=== PATIENT | female | born 1995 | race Caucasian/White ===

== ENCOUNTER 2022-05-15 09:06 | Outpatient (RCR) | payer BC, SELFPAY ==
[2022-05-16] MEDS: RHO(D) IMMUNE GLOBULIN 300 MCG/2 ML SYRINGE IM (19:40)
== END 2022-08-13 23:59 | disposition home or self-care (01) ==
LOC: ANHLAB 09:06
PROVIDERS: Visit Provider Obstetrics & Gynecology
DX: Z29.13 Encounter for prophylactic Rho(D) immune globulin (principal); O36.0130 Maternal care for anti-D [Rh] antibodies, third trimester, not applicable or unspecified; Z3A.00 Weeks of gestation of pregnancy not specified
CPT/HCPCS: 36415; 85461; 90384; 96372; J2790

== ENCOUNTER 2022-07-14 18:21 | Emergency (ER) | payer BC, SELFPAY ==
[2022-07-14 18:32] VITALS: BP 121/73; PULSE 126; RESP 18; TEMP 36.7; O2SAT 99
--- NOTE | 2022-07-14 19:05 | ED.GENADULT ---
HPI - General Adult General Chief complaint: Upper Respiratory Infection Stated complaint: headache,cough History of Present Illness HPI narrative: 27 y/o female. PMHx None reported. Presents to [facility] today with acute complaints of BHAKTA, increased nasal congestion, bilateral ear fullness, and sore throat for the past 3-4 days respectively. Client reports to have had a young child at home, ill with similar symptoms in the recent interim. -No fevers, chills. -Intermittent cough, no dyspnea, wheezing. -Denies dysphagia. She is incidentally 38 weeks gestation . G2-P1-A0. She voices no related concerns. -Intermittent BHAKTA. However blood pressure has been well controlled, no dizziness, syncopal episodes, edema. -Denies chest pain, palpitations. -She is scheduled for induction on 07/30/2022. Client has had mild reliefs with home OTC remedies. She is without additional acute c/o upon PE. Related Data Home Medications Medication Instructions Recorded Confirmed levothyroxine 75 mcg tablet 75 mcg PO DAILY 06/30/22 07/14/22 prenat.vits,eugene,[id number] 1 tablet PO DAILY 06/30/22 07/14/22 Allergies Allergy/AdvReac Type Severity Reaction Status Date / Time No Known Allergies Allergy Verified 07/14/22 18:38 Review of Systems Review of Systems: CONSTITUTIONAL: Denies fever, chills, sweats. BHAKTA, denies visual changes, dizziness, LOC. EYES: Denies visual changes, redness, discharge. ENT: + rhinorrhea, congestion, ear fullness. No sore throat, otalgia. CARDIOVASCULAR: Denies chest pain, palpitations, edema. RESPIRATORY: Denies dyspnea, wheezing. Intermittent cough GASTROINTESTINAL: Denies abdominal pain, nausea, vomiting, diarrhea. GENITOURINARY: Denies dysuria, hematuria, abnormal discharge SKIN: Denies rash or itching. MUSCULOSKELETAL: Denies acute back pain, joint pain, or myalgia. NEUROLOGIC: Denies numbness, or focal weakness. PSYCHIATRIC: Denies anxiety or depression. [facility] Social History Social History Substance use: never Spiritual care concerns: No Exam Narrative: GENERAL: This is a well-nourished, well-developed adult, in no apparent distress. HEAD: normocephalic. EYES: Sclera clear/white. EARS: External ears normal, auditory canals clear and without drainage. TMs bulging bilateral, w/o erythema, discharge. NOSE: External nose normal. Positive Rhinorrhea, no obstruction, nares patent. THROAT: Mucous membranes moist, posterior pharynx erythematous. No exudates. NECK: Neck supple, non-tender without lymphadenopathy, masses or thyromegaly. No meningeal signs. CARDIOVASCULAR: Mild tachycardia. Regular rhythm without murmurs, gallops, or rubs. No edema. RESPIRATORY: Clear to auscultation. Breath sounds equal bilaterally. No wheezes, rales, or rhonchi. GASTROINTESTINAL: Abdomen non-tender. Bowel sounds are active. SKIN: warm, intact with no suspicious lesions or rash, good texture and turgor. NEURO: No focal deficits. A&OX4. Course Course Level of Care: Express Care Visit Vital Signs Vital signs: Vital Signs Temperature 36.7 C 07/14/22 18:32 Pulse Rate 126 H 07/14/22 18:32 Respiratory Rate 18 07/14/22 18:32 Blood Pressure 121/73 07/14/22 18:32 Pulse Oximetry 99 07/14/22 18:32 Oxygen Delivery Room Air 07/14/22 18:32 Temperature 36.7 C 07/14/22 18:32 Pulse Rate 126 H 07/14/22 18:32 Respiratory Rate 18 07/14/22 18:32 Blood Pressure 121/73 07/14/22 18:32 Pulse Oximetry 99 07/14/22 18:32 Oxygen Delivery Room Air 07/14/22 18:32 Medical Decision Making [facility] Narrative Medical decision making narrative: -Rapid Strep negative. -Influenza negative. -Child at home ill with similar URI s/s, suspect other viral illness or common cold based on history, symptomatology, & PE findings. -BHAKTA, without focal neurological deficits. No signs of Pre-eclampsia or Hypertens
[2022-07-14 19:08] VITALS: PULSE 117; O2SAT 97
== END 2022-07-14 19:08 | disposition home or self-care (01) ==
PROVIDERS: Emergency Provider Nurse Practitioner Adult Health; PCP Obstetrics & Gynecology
DX: B34.9 Viral infection, unspecified (principal)
CPT/HCPCS: 87081; 87804; 87880; 99203; G0463

== ENCOUNTER 2022-07-16 18:34 | Outpatient (CLI) | payer BC, SELFPAY ==
--- NOTE | 2022-07-16 19:12 | PC.NURSE ---
1854- pt came in with c/o DFM since 4pm today. she has been under the weather for a few days and not feeling well and went to urgent care this weekend. tested negative from flu, covid, and RSV. pt also states that she hasn't been eating since she hasn't been feeling well.
--- NOTE | 2022-07-16 19:15 | PC.NURSE ---
1901- called Jace Ramires CNM- informed of pt admission for DFM- FHT reviewed. pt is feeling baby now. pt is wanting to d/c home. Per Jace Ramires CNM- have pt call office in AM to schedule appt for RAUL in office. pt agrees and order received to d/c pt home with instructions on when to return to L&D.
== END 2022-07-16 18:35 | disposition home or self-care (01) ==
PROVIDERS: PCP Obstetrics & Gynecology; Visit Provider Obstetrics & Gynecology
DX: O36.8190 Decreased fetal movements, unspecified trimester, not applicable or unspecified (principal); Z3A.00 Weeks of gestation of pregnancy not specified
CPT/HCPCS: 59025

== ENCOUNTER 2022-07-30 00:04 | Inpatient (IN) | payer BC, SELFPAY ==
[2022-07-30] VITALS (67 sets, daily range): BP systolic 75–147; BP diastolic 49–93; PULSE 69–157; RESP 14–16; TEMP 36.3–37; O2SAT 93–100; BMI 32.3
--- NOTE | 2022-07-30 01:06 | LDADM ---
This patient, Minal Orlando, was admitted to Labor/Delivery/Recovery 107 on 07/30/22 at 00:04. Plans for labor, pain management and were discussed with patient. Patient/family oriented to hospital policies and general routines including ID bracelet, bed and alarms, visiting hours, pain management, procedures, bathroom and other care routines, personal items, smoking policy, room service/diet and guest tray routines, infant security routines, and visiting hours. Patient/Family are encouraged to report perceived risks to care and to ask questions if they do not understand what they are told or what they should do. See OBIX for further documentation.
[2022-07-30 01:14] LABS: Basophils Absolute Auto 0.1 K/mm3 (0.0-0.1); Basophils Percent Auto 0.4 % (0.2-1.2); Eosinophils Absolute Auto 0.1 K/mm3 (0-0.3); Eosinophils Percent Auto 0.6 % (0-4.4); Hematocrit 34.2 % (37.0-47.0); Hemoglobin 10.9 g/dL (12.0-15.0); Immature Granulocyte Absolute 0.06 K/mm3 (0.00-0.031); Immature Granulocyte Percent A 0.5 % (0-0.5); Lymphocytes Absolute Auto 2.21 K/mm3 (0.9-3.2); Lymphocytes Percent Auto 17.9 % (18.3-44.2); Mean Corpuscular HGB Conc 31.9 g/dl (32-36); Mean Corpuscular Hemoglobin 27.9 pg (26-34); Mean Corpuscular Volume 87.5 fl (80-100); Mean Platelet Volume 9.2 fl (7.4-10.4); Monocytes Absolute Auto 1.1 K/mm3 (0.1-0.6); Monocytes Percent Auto 8.7 % (2.6-8.5); Neutrophils Absolute Auto 8.9 K/mm3 (1.3-6.7); Neutrophils Percent Auto 71.9 % (45.5-73.1); Platelet Count Result 403 k/mm3 (150-375); Red Blood Count 3.91 M/mm3 (4.2-5.4); Red Cell Distribution Width 13.8 % (11.5-14.5); White Blood Count 12.4 K/mm3 (4.5-10.0)
[2022-07-30] MEDS: fentaNYL CITRATE INJ (*CRX) 100 MCG/2 ML VIAL 50 MCG IV PUSH ×2 (01:42→02:00)
[2022-07-30] MEDS: LACTATED RINGERS 1,000 ML 125 ML IV CONT ×2 (02:18→03:47)
--- NOTE | 2022-07-30 02:38 | P.PNAN_ITS ---
Anes - Eval Pre Procedure Procedure: Labor epidural Date/Time: 07/30/22 02:38 Surgeon: tom Preop Diagnosis: pain during labor Pre Op Diagnosis: srom Patient Data Age: 27 Gender: F Height: 1.52 m Weight: 75 kg Last Vital Signs Pulse 120 H 07/30/22 02:30 BP 128/93 H 07/30/22 02:30 Pulse Ox 100 07/30/22 02:36 O2 Del Method Room Air 07/30/22 01:04 Allergies Allergy/AdvReac Type Severity Reaction Status Date / Time No Known Allergies Allergy Verified 07/14/22 18:38 Home Medications Medication Instructions Recorded Confirmed Type levothyroxine 75 mcg tablet 75 mcg PO DAILY 06/30/22 07/14/22 History prenat.vits,eugene,[id number] 1 tablet PO DAILY 06/30/22 07/14/22 History Laboratory Tests 07/30/22 07/30/22 00:19 00:19 WBC 12.4 K/mm3 H K/mm3 (4.5-10.0) RBC 3.91 M/mm3 L M/mm3 (4.2-5.4) Hgb 10.9 g/dL L g/dL (12.0-15.0) Hct 34.2 % L % (37.0-47.0) MCV 87.5 fl fl (80-100) MCH 27.9 pg pg (26-34) MCHC 31.9 g/dl L g/dl (32-36) RDW 13.8 % % (11.5-14.5) Plt Count 403 k/mm3 H k/mm3 (150-375) MPV 9.2 fl fl (7.4-10.4) Immature Gran % (Auto) 0.5 % % (0-0.5) Neut % (Auto) 71.9 % % (45.5-73.1) Lymph % (Auto) 17.9 % L % (18.3-44.2) [place] % (Auto) 8.7 % H % (2.6-8.5) Eos % (Auto) 0.6 % % (0-4.4) Baso % (Auto) 0.4 % % (0.2-1.2) Lymph # (Auto) 2.21 K/mm3 K/mm3 (0.9-3.2) [place] # (Auto) 1.1 K/mm3 H K/mm3 (0.1-0.6) Eos # (Auto) 0.1 K/mm3 K/mm3 (0-0.3) Baso # (Auto) 0.1 K/mm3 K/mm3 (0.0-0.1) Abs Immat Gran (auto) 0.06 K/mm3 H K/mm3 (0.00-0.031) Absolute Neuts (auto) 8.9 K/mm3 H K/mm3 (1.3-6.7) Absolute Nucleated RBC 0.0 K/mm3 K/mm3 (0.0-0.012) Nucleated RBC % 0.0 % % (0.0-0.2) RPR Pending Patient hx anesthesia problems: none Family hx anesthesia problems: none Results Review: All pre-operative results and documents have been reviewed as part of the pre- operative evaluation. [facility] Past Medical History Medical History (Updated 07/30/22 @ 02:40 by Viktoriya Hernandez CRNA) Hypothyroid IUP (intrauterine ), incidental Social History Social History Smoking status: Never smoker Substance use: never Lack of Transportation: No Lack of Food: Never True Current Housing: I Have Housing Concerned About Future Housing: No Difficulty Paying Gas/Electric Bills: No Difficulty Paying for Meds: No Currently Unemployed: No Education: Trade/Vocational Certificate Difficulty w/ Childcare or Family Care: No Spiritual care concerns: No Exam Day of Procedure 07/30/22 02:38
[2022-07-30] MEDS: OXYTOCIN 30 UNITS/NS 500 ML 30 UNITS/500 ML BAG 999 UNITS IV CONT (03:48)
--- NOTE | 2022-07-30 04:48 | PM.OBPRVD ---
OB - Delivery Note Procedure Delivery date: 07/30/22 Procedure: Delivery monitor: External FHT and External Uterine Route of delivery: Laceration Description: None Quantitative Blood Loss (ml): 75 Anesthesia type: Epidural Disposition: Floor Narrative: With adequate expulsive efforts by the mother, the baby's head was delivered OA with a hand along side it. The baby's anterior shoulder was delivered under the pubic symphysis without difficulty. The posterior shoulder and the rest of the baby delivered without difficulty. The infant was placed on the mothers chest and suctioned and stimulated. The cord was clamped and cut after 30 seconds. Mother and baby both stable. [place] Baby Date of : 07/30/22 Time of : 04:36 Weeks of gestation at delivery: 40 gender: Female Weight (pounds): 8 Weight (ounces): 10 presentation: vertex Placenta delivery description: Spontaneous Cord Vessel Description: 3 Vessels and Delayed Cord Clamping score one minute: 8 score five minutes: 9
--- NOTE | 2022-07-30 04:51 | WPDHPUPDATE1 ---
History and Physical Update Update Date/Time: 07/30/22 04:51 History and Physical has been reviewed, including an updated exam of the patient. There are NO changes in the patient's condition. Risks, benefits, and alternatives have been discussed and questions answered. Patient agrees to proceed with procedure. Admitted in labor, active. GBS neg. hypothyroidism. Rh neg.
--- NOTE | 2022-07-30 08:07 | PC.NURSE ---
Patient transferred to post room #290 via wheelchair. Support person present. Oriented to unit, room, information board, rooming in, admission packet and security measures. Patient verbalizes understanding.
[2022-07-30] MEDS: ACETAMINOPHEN/BUTALBITAL/CAFFEINE 325-50-40 MG TABLET (FIORICET) 1 TAB PO (09:46)
[2022-07-30] MEDS: LANOLIN (LANSINOH) 7.5 GM CREAM 1 APPLIC TOPICAL (09:47)
--- NOTE | 2022-07-30 10:48 | PC.NURSE ---
1009 Introductions were made, then consulted with patient to assess needs related to . Mother led the conversation with the experience so far going well with no pain. Mother breastfed her last child for 10 months and this one is going well just like the last one did . Resources provided for inpatient and outpatient services using a resource guide. Mother voiced understanding of information and will call if there is a request for assistance. Reported to primary RN.
[2022-07-30 12:44] LABS: Rapid Plasma Reagin Non-Reactive (NonReactive)
[2022-07-31 04:59] LABS: Hematocrit 34.1 % (37.0-47.0); Hemoglobin 10.9 g/dL (12.0-15.0)
[2022-07-31 05:00] VITALS: BP 103/72; PULSE 72; RESP 16; TEMP 36.2; O2SAT 99
--- NOTE | 2022-07-31 07:24 | PM.OBPNVD ---
OB - PN: Subj Subjective Date/time seen: 07/31/22 07:24 Patient comments: no complaints and pain well controlled baby status: doing well and nursing well Matthews feeding status: exclusively breast feeding Narrative: would like DC home today OB - PN: Obj Data Labs CBC & Chem 7: 07/31/22 04:12 Labs: Laboratory Results - last 24 hr 07/30/22 07/30/22 07/31/22 00:19 00:19 04:12 Hgb Hct RPR Non-reactive Blood Type B Negative B Negative Antibody Screen Positive Positive Antibody Identification Passive Due to RH Imm Glob Antigen Identification Cancelled HANNAH, IgG Interpret Not Performed Not Performed HANNAH, Poly Interpret Negative Negative HANNAH, Complement Interp Not Performed Not Performed 07/31/22 04:12 Hgb 10.9 L Hct 34.1 L RPR Blood Type Antibody Screen Antibody Identification Antigen Identification HANNAH, IgG Interpret HANNAH, Poly Interpret HANNAH, Complement Interp OB - PN A/P Plan day: 1 Plan: routine care and discharge home Time Spent With Patient Time: Total time spent is greater than 50% in coordination of care (as documented) at patient's floor/unit and/or counseling patient: Time with patient: less than 15 minutes Exam Narrative: NAD abdomen soft, nontender, fundus firm below the umbilicus Extremities nontender, 1+ edema
--- NOTE | 2022-07-31 07:27 | PM.OBDSVD ---
DS: Admitting Diagnosis Discharge Date 07/31/22 Admitting Diagnosis term labor DS: Discharge Diagnosis Discharge Diagnosis (1) , delivered: Code(s): O80 - Encounter for full-term uncomplicated delivery Status: Acute OB - DS: Summary Hospital Course Hospital Course: Minal was admitted for labor at 40w. She proceeded to have an uncomplicated vaginal delivery and course and was discharged home on PPD1. OB Procedures : Ultrasound OB Procedures Intrapartum: Spontaneous Vag Delivery OB Procedures: : None Peripartum Data Delivery Method: Natural Vaginal complications: none Status at Discharge Functional status at discharge: independent ambulation Time Spent with Patient Time attestation: Total time spent providing and/or coordinating discharge services: Exam Narrative: NAD abdomen soft, appropriately tender Ext non tender, 1+ edema DS: Data Data Completed and Pending Labs on day of discharge: Labs from last 24 hours 07/31/22 07/31/22 07/30/22 04:12 04:12 00:19 Hgb 10.9 L Hct 34.1 L RPR Blood Type B Negative B Negative Antibody Screen Positive Positive Antibody Identification Pending Passive Due to RH Imm Glob Antigen Identification Pending Cancelled HANNAH, IgG Interpret Not Performed Not Performed HANNAH, Poly Interpret Negative Negative HANNAH, Complement Interp Not Performed Not Performed Screen Pending Baby's Blood Type Pending Baby's HANNAH Pending Doses of RhIg Required Pending 07/30/22 00:19 Hgb Hct RPR Non-reactive Blood Type Antibody Screen Antibody Identification Antigen Identification HANNAH, IgG Interpret HANNAH, Poly Interpret HANNAH, Complement Interp Screen Baby's Blood Type Baby's HANNAH Doses of RhIg Required Discharge Plan Discharge Attending physician on discharge: Triny Choi Discharging Clinician: Triny Choi Anticipated Discharge Date/Time: 07/31/22 07:26 Patient Disposition: Home, Self-Care Activity: pelvic rest Diet: regular Patient Instructions: Antibiotic Form Stand Alone Forms: General Discharge Information Follow-up/Referrals: Triny Choi MD [Primary Care Provider] - 4 Weeks Discharge Medications: Continued levothyroxine 75 mcg Tablet 75 mcg PO DAILY #2 Tablet 1 tablet PO DAILY Date of admission: 07/30/22 00:04 Primary Care Provider: Triny Choi Admitting Provider: Triny Choi Attending physician on admission: Triny Choi Condition: Stable
[2022-07-31 08:30] VITALS: BP 86/55; PULSE 74; RESP 16; TEMP 37; O2SAT 98
--- NOTE | 2022-07-31 08:53 | WPDANLDPN2 ---
Anes-Prog Note L&D Date/Time: 07/31/22 08:53 Neuro status: Neuro function grossly intact. Vital Signs: Last Vital Signs Temp 36.2 C L 07/31/22 05:00 Pulse 72 07/31/22 05:00 Resp 16 07/31/22 05:00 BP 103/72 07/31/22 05:00 Pulse Ox 99 07/31/22 05:00 O2 Del Method Room Air 07/30/22 19:55 Pain score (VAS): 0 I/O: Intake & Output 07/30/22 07/31/22 07/31/22 23:59 07:59 15:59 Intake Total 500 Balance 500 Patient feedback: Patient satisfied with anesthetic care.
[2022-07-31] MEDS: RHO(D) IMMUNE GLOBULIN 300 MCG/2 ML SYRINGE IM (09:23)
[2022-07-31 10:25] VITALS: BP 114/84
[2022-08-01 10:18] VITALS: BP 107/74; PULSE 111; RESP 20; TEMP 36.8; O2SAT 98
== END 2022-07-31 11:55 | disposition home or self-care (01) | DRG 807 ==
LOC: ANHLDR 00:08 → ANHOB2 08:10
PROVIDERS: Admitting Provider Obstetrics & Gynecology; PCP Obstetrics & Gynecology; Visit Provider Obstetrics & Gynecology
DX: O99.284 Endocrine, nutritional and metabolic diseases complicating childbirth (principal); Z37.0 Single live birth; Z3A.40 40 weeks gestation of pregnancy; E03.9 Hypothyroidism, unspecified
CPT/HCPCS: 36415; 84112; 85014; 85018; 85025; 85461; 86592; 86850; 86880; 86900; 86901; 86902; 90384; A9270; J2590; J2790; J2795; J3010; J7120

== ENCOUNTER 2022-08-01 10:11 | Outpatient (CLI) | payer BC, SELFPAY ==
--- NOTE | 2022-08-01 10:20 | PC.NURSE ---
Dr. Hogan at bedside to assess pt. May D/C home. No further treatment needed.
--- NOTE | 2022-08-01 10:31 | WPDANLDPN2 ---
Anes-Prog Note L&D Date/Time: 08/01/22 10:31 Neuraxial method: epidural Neuro status: Neuro function grossly intact. Cardiovascular status: normal Respiratory status: normal Airway patency: baseline Mental status: baseline Post-Op hydration status: normal Pain score (VAS): mild Patient feedback: Patient comes for F/U post-procedure and delivery day 2 with BHAKTA. She describes onset last night. Moderate severity. Posterior head and neck pain. no visual or neuro symptoms.less pain today but worsening one hour after awakening. Has only taken one of her Fioricet last night that she takes for migraines. Patient is sitting up at 45 degrees in bed breast feeding in no apparent distress. Epidural note describes no difficulty in placement and no CSF. This and the patient's small size lead me to believe epidural was placed without dural puncture. Her relative mild to moderate pain and her willingness to try conservative measures means we will not perform a blood patch at this time. I described at length the procedure and conservative measure to take today including pain meds, positioning, caffeine and hydration. I asked her to call with any worsening or neuro symptoms and we would reevaluate if necessary.
[2022-08-01 10:36] VITALS: BP 114/72; TEMP 36.4
== END 2022-08-01 10:39 | disposition home or self-care (01) ==
LOC: ANHOBOP 10:33
PROVIDERS: Visit Provider Obstetrics & Gynecology
DX: O89.4 Spinal and epidural anesthesia-induced headache during the puerperium (principal)
CPT/HCPCS: 99199

== ENCOUNTER 2023-05-15 15:10 | Outpatient (CLI) | payer BC, SELFPAY ==
--- NOTE | 2023-05-20 16:31 | WPDHOLTEREM ---
Holter/Event Monitor Holter/Event Monitor Date of procedure: 05/15/23 Holter/Event Procedure: 48 Hr Holter Monitor Indications: Palpitations Conclusion: 1. 48 hour holter monitor on 05/15/23. 2. Underlying rhythm is sinus rhythm. HR range 51-152 bpm; average HR 88 bpm. HR at 152 bpm was at 10:16. 3. There is 1 premature supraventricular complexes and 3 supraventricular couplets. No supraventricular tachycardia. 4. No premature ventricular complexes. No ventricular tachycardia. 5. No sinoatrial or atrioventricular blocks. No significant pauses greater than 2 seconds. 6. No symptoms available for correlation.
== END 2023-05-15 15:11 | disposition home or self-care (01) ==
PROVIDERS: PCP Internal Medicine; Visit Provider Clinical Nurse Specialist
DX: R00.2 Palpitations (principal)
CPT/HCPCS: 93225; 93226

== ENCOUNTER 2024-06-06 04:05 | Emergency (ER) | payer BC, SELFPAY ==
--- NOTE | ~2024-06-06 | XR_ITS ---
EXAMINATION: XR ankle LT min 3V DATE: 06/06/2024 04:28 INDICATION: Left ankle pain post fall TECHNIQUE: Anteroposterior, mortise and lateral views of the left ankle were obtained. COMPARISON: None. FINDINGS: Alignment is normal. No fracture. Joint spaces are well maintained. Small sclerotic bone islands at the talar dome and at the calcaneal body. No ankle joint effusion. Soft tissue swelling about the lat eral malleolus. IMPRESSION: 1. No osseous abnormality. Reviewed, dictated and finalized at location A. IMPRESSION: 1. No osseous abnormality.
[2024-06-06 04:15] VITALS: BP 111/67; PULSE 96; RESP 14; TEMP 36.6; O2SAT 98
--- NOTE | 2024-06-06 04:18 | ED.GENADULT ---
HPI - General Adult General Chief complaint: Extremity Injury, Lower Stated complaint: L ankle injury Time Seen by Provider: 06/06/24 04:14 History of Present Illness HPI narrative: Patient is a 29-year-old female who presents emergency department with chief complaint of left ankle pain. Patient reports that she was taken shoulder up from daycare rolled her ankle and reports she has pain on the lateral malleolus of her left ankle. The patient reports hurts whenever she tries to walk on it denies numbness or tingling denies any laceration denies head injury reports she had an abrasion to her right knee Related Data Home Medications Medication Instructions Recorded Confirmed multivitamin (Multiple Vitamins 1 tablet PO DAILY 01/15/23 05/19/24 tablet) valacyclovir 1 gram tablet 2,000 mg PO BID PRN 01/15/23 05/19/24 Allergies Allergy/AdvReac Type Severity Reaction Status Date / Time No Known Allergies Allergy Verified 06/06/24 04:05 Review of Systems Review of Systems: A 10 system review of systems was completed on the patient and is negative except for what is stated in the HPI. Nursing and ancillary documentation was reviewed. [facility] Past Medical History Medical History Hypothyroid Iron deficiency anemia IUP (intrauterine ), incidental Family History Family History Grandparent Diabetes mellitus Ovarian cancer Social History Social History Smoking status: Never smoker Alcohol intake: never Substance use: never Do You Feel Safe in your Home?: Yes Lack of Transportation: No Lack of Food: Never True Current Housing: I Have Housing Concerned About Future Housing: No Difficulty Paying Gas/Electric Bills: No Difficulty Paying for Meds: No Currently Unemployed: No Education: Trade/Vocational Certificate Difficulty w/ Childcare or Family Care: No Spiritual care concerns: No Exam Narrative: GENERAL: Well-appearing, well-nourished, and in no acute distress. HEAD: Normocephalic, atraumatic. EYES: PERRLA and EOMI. ENT: Nares clear, no rhinorrhea or epistaxis. Mucous membranes moist. NECK: Supple. CHEST: Clear to auscultation. No respiratory distress. HEART: Regular rate and rhythm. No murmur heard. Normal peripheral pulses. ABDOMEN: Soft, nontender, nondistended, normal active bowel sounds. EXTREMITIES: Normal range of motion tenderness and swelling of the lateral malleolus of the left ankle small abrasion present to the right knee area. No edema. SKIN: Warm, dry, no rash. NEURO: No focal deficits. Alert and oriented x3. GCS 15 PSYCH: Normal mood and affect. Course Vital Signs Vital signs: Vital Signs Temperature 36.6 C 06/06/24 04:15 Pulse Rate 96 06/06/24 04:15 Respiratory Rate 14 06/06/24 04:15 Blood Pressure 111/67 06/06/24 04:15 Pulse Oximetry 98 06/06/24 04:15 Temperature 36.6 C 06/06/24 04:15 Pulse Rate 96 06/06/24 04:15 Respiratory Rate 14 06/06/24 04:15 Blood Pressure 111/67 06/06/24 04:15 Pulse Oximetry 98 06/06/24 04:15 Medical Decision Making MDM Narrative Medical decision making narrative: Differential diagnosis includes fracture, sprain/strain Plain film x-ray showed no evidence of fracture Patient came in with a walking boot the walking boot will be placed back on the patient in the patient will be put on crutches with weight-bearing as tolerated Vital Signs Vital Signs: Vital Signs Temperature 36.6 C 06/06/24 04:15 Pulse Rate 96 06/06/24 04:15 Respiratory Rate 14 06/06/24 04:15 Blood Pressure 111/67 06/06/24 04:15 Pulse Oximetry 98 06/06/24 04:15 Temperature 36.6 C 06/06/24 04:15 Pulse Rate 96 06/06/24 04:15 Respiratory Rate 14 06/06/24 04:15 Blood Pressure 111/67
[2024-06-06] MEDS: HYDROcodone/acetaminophen (*CRX) 5-325 MG TABLET 1 TAB PO (04:42)
[2024-06-06 04:49] VITALS: BP 111/96; PULSE 87; RESP 14; O2SAT 100
== END 2024-06-06 04:50 | disposition home or self-care (01) ==
LOC: ANHED 04:37
PROVIDERS: Emergency Provider Emergency Medicine; PCP Internal Medicine
DX: S93.402A Sprain of unspecified ligament of left ankle, initial encounter (principal); X50.0XXA Overexertion from strenuous movement or load, initial encounter; E03.9 Hypothyroidism, unspecified
CPT/HCPCS: 73610; 99283; A9270

== ENCOUNTER 2024-07-06 15:55 | Outpatient (RCR) | payer BC, SELFPAY ==
[2024-07-08] MEDS: RHO(D) IMMUNE GLOBULIN 300 MCG/2 ML SYRINGE IM (20:53)
== END 2024-10-04 23:59 | disposition home or self-care (01) ==
LOC: ANHLAB 15:55
PROVIDERS: PCP Internal Medicine; Visit Provider Obstetrics & Gynecology
DX: O36.0190 Maternal care for anti-D [Rh] antibodies, unspecified trimester, not applicable or unspecified (principal); Z3A.00 Weeks of gestation of pregnancy not specified
CPT/HCPCS: 36415; 85461; 86850; 86900; 86901; 90384; 96372; J2790

== ENCOUNTER 2024-09-04 11:15 | Observation (INO) | payer BC, SELFPAY ==
[2024-09-04] VITALS (39 sets, daily range): BP systolic 105–111; BP diastolic 64–67; PULSE 90–134; RESP 16; TEMP 36.4; O2SAT 97–100; BMI 30.3
--- NOTE | 2024-09-04 11:48 | OBADM ---
This patient, Minal Orlando, admitted to the OB room 111 for observation. Patient/family oriented to hospital policies and general routines including ID bracelet, bed and alarms, visiting hours, pain management, procedures, bathroom and other care routines, personal items, smoking policy, room service/diet, and visiting hours. Patient/Family are encouraged to report perceived risks to care and to ask questions if they do not understand what they are told or what they should do.
--- NOTE | 2024-09-04 13:01 | ECG_ITS ---
Test Date: 2024-09-04 13:18:24 Measurements Intervals [place] Rate: 120 P: 41 DC: 120 QRS: 15 QRSD: 81 T: 6 QT: 339 QTc: 479 Interpretive Statements SINUS TACHYCARDIA NONSPECIFIC T-WAVE ABNORMALITY ABNORMAL RHYTHM ECG No previous ECG available for comparison Electronically Signed On 09-07-2024 15:05:13 [employer] by Jason Amaro M.D.
--- NOTE | 2024-09-11 07:16 | PM.OBTRLD ---
OB - Triage/Final Diagnosis Visit Information Date of evaluation: 09/08/24 Reason for evaluation: threatened labor Comments/Additional reasons for admission: I have assessed the risk for this patient, Minal Orlando, and determined that she would benefit from observation care.
== END 2024-09-04 14:41 | disposition home or self-care (01) ==
PROVIDERS: Admitting Provider Obstetrics & Gynecology; PCP Internal Medicine; Visit Provider Obstetrics & Gynecology
DX: O47.03 False labor before 37 completed weeks of gestation, third trimester (principal); Z3A.36 36 weeks gestation of pregnancy
CPT/HCPCS: 93005; G0378; G0379

== ENCOUNTER 2024-09-29 02:21 | Inpatient (IN) | payer BC, SELFPAY ==
[2024-09-29] VITALS (104 sets, daily range): BP systolic 57–150; BP diastolic 45–95; PULSE 68–179; RESP 16; TEMP 36–37.1; O2SAT 88–100
--- OUTSIDE RECORDS SUMMARY | 2024-09-29 02:34 | XMS_ITS | Encounter Summary ---
Author Organization [facility] Address [address] [place] [address] [place] [address] Care Team Providers Care Contract Administration Manager Name Role Phone None, Provider Primary Care Provider Unavaila ble Encounter Details Date Type Department Care Team (Late st Contact Info) Description 02/14/2022 [facility] Message Enc [facility] [address] [place] [id number] Elier Godfrey MD [address] [place] [address] Thyroid medication Social History Tobacco Use Types Packs/Day Years Used Date Smoking Tobacco: Never Smokeless Tobacco: Never Alcohol Use Standard Drinks/Week Comments Not Currently 0 (1 standard drink = 0.6 oz pur e alcohol) Humiliation, Afraid, Rape, and Kick questionnair e Answer Date Recorded Within the last year, have y ou been afraid of your partner or ex-partner? No 12/15/2021 Within the last year, have y ou been humiliated or emotionally abused in other ways by your partner or ex-partner? No Within the last year, have y ou been kicked, hit, slapped, or otherwise physically hurt by your partner or ex-partner? No 12/15/2021 Within the last year, have y ou been raped or forced to have any kind of sexual activity by your partner or ex-partner? 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 No / Unsure 02/15/2022 8:17 AM CDT documented as of this encounter Progress Notes * Layne Ma CMA - 02/14/2022 11:24 AM CDTFrom: Minal Angel To: Dr. Elier Godfrey Sent: 02/14/2022 10:46 AM CDT Subject: Thyroid medication Hello! My thyroid medication is almost out. I have 12 days left so I will need to get my thyroid labs drawn. I have also had a pretty frequent headache although it really is only when I am home.. We rent a house on a slab of concrete that it has always concerned me if moisture in one room especially.. Is there a test we coul d do to make sure I haven't been exposed to mold toxicity and that is what is causing my headaches?.. Thanks! documented in this encounter Plan of Treatment Not on file documented as of this encounter Visit Diagnoses Not on filedocumented in this encounter Care Teams Contract Administration Manager Relationship Specialty Start Date End Date None, Provider, PCP - General 12/15/21 documented as of this encounter
--- OUTSIDE RECORDS SUMMARY | 2024-09-29 02:34 | XMS_ITS | Clinical Summary ---
Author Organization [facility] Address [facility] [place] [address] [place] [address] Care Team Providers Care Custom Harvester Name Role Phone None, Provider MD Primary Care Provider Unavaila ble Allergies Active Allergy Reactions Criticality Noted Date Comments Hydrocodone Rash Low 12/02/2016 Medications butalbital-acetami nophen-caffeine 50-300-40 MG capsule 12/03/2021 Active Qyyvrfey-Oee-Lp-FA ( VITAMINS OR) Active Active Problems Problem Noted Date Diagnosed Date Blood type B- 12/16/2021 17 weeks gestation of ([facility]) 2021 Hypothyroidism affecting pre gnancy in first trimester ([facility]) 12/15/2021 Migraine 12/15/2021 Immunizations Name Administration Dates Next Due Dtap (Acel-Immune) 12/25/2001, 9,1997,08/02,1997 Hepatitis A (Havrix [address]) 02/04/2012 Hepatitis B Pediatric 1997,1997,04/02 Hib (Generic) 10/24/1998, 8,1997,06/03 Influenza (Generic) 06/07/2018,201 7,06/11/2016,06/03 MENINGOCOCCAL A C Y&W-135 oligosaccharide (MENVEO) 03/14/2011 MMR (MMRII) 12/25/2001,04/20/1998 Pneumococcal (Prevnar 13) 04/16/2000 Polio IPV (Ipol) 12/25/2001, 8,1997,06/03 Tdap (Generic) 07/10/2016,03/14/2011 Family History Medical History Relation Comments hypothyroidism Father Colon Cancer Maternal Grandfather Ovarian Cancer Maternal Grandmother Relation Status Comments Father Alive Maternal Grandfather Maternal Grandmother Alive Mother Alive Paternal Grandfather Paternal Grandmother Social History Tobacco Use Types Packs/Day Years [...] on to questions 3-9 0 02/15/2022 Comments No Sex and Gender Information Value Date Recorded Sex Assigned at Not on file Legal Sex Female 7:55 AM CDT Gender Identity Not on file Sexual Orientation Not on file 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 Not on file Not on file Last Filed Vital Signs Vital Sign Reading Time Taken Comments Blood Pressure 104/64 02/15/2022 8:23 AM CDT Pulse 78 02/15/2022 8:23 AM CDT Temperature - - Respiratory Rate - - Oxygen Saturation 98% 02/15/2022 8:23 AM CDT Inhaled Oxygen Concentration - - Weight 64 kg (141 lb) 02/15/2022 8:23 AM CDT Height 152.4 cm (5') 02/15/2022 8:23 AM CDT Body Mass Index 27.54 02/15/2022 8:23 AM CDT Plan of Treatment Health Maintenance Due Date Last Done Comments Annual Physical 2000 COVID-19 Vaccine (2023- season) 2024 Influenza Adult (#1) 2024 06/07/2018, 05/16/2017, 06/11/2016, Additional history exists Cervical Cancer Screening Pap Smear (Age 21 to 29) Every 3 Years 12/15/2024 12/15/2021 Cervical Cancer Screening 12/15/2024 DTaP, Tdap and Td Vaccines (8 - Td or Tdap) 07/10/2026 07/10/2016, 03/14/2011, 12/25/2001, Additional history exists Hepatitis B Vaccines Completed 1997, 1997, 1997 Pneumococcal Vaccine: Pediatrics (0 to 5 Years) and At-Risk Patients (6 to 64 Years) Completed 04/16/2000 Meningococcal Vaccine Aged Out 03/14/2011 No kay mino eligible based on patient's age to complete this topic Chlamydia Screening Females ages 16-24 Discontinued 12/15/2021 Hepatitis C Completed 12/15/2021 HPV Vaccines Aged Out No longer eligi ble based on patient's age to complete this topic Meningococcal B Vaccine Aged Out No l onger eligible based on patient's age to complete this topic RSV Immunizations Under 20 Months Aged Out No longer eligible based on patient's age to complete this topic Procedures Procedure Name Priority Date/Time Associated Diagnosis Comments HEPATITIS C ANTIBODY Routine 12/15/2021 4:07 PM CDT 8 weeks gestation of ([facility]) CHLAMYDIA GC RNA Routine 12/15/2021 3:47 PM CDT 8 weeks gestation of ([facility]) CYTOPATH CERV/VAG THIN LAYER Routine 12/15/2021 9:58 AM CDT 8 weeks gestation of ([facility]) from Last 3 Months or Most Recently Relevant to Health Maintenance Results * HEPATITIS C ANTIBODY (12/15/2021 4:07 PM CDT) [facility] [address] HEPATITIS C AB NON-REACTI VE NON-REACT KING 12/15/2021 6:26 PM CDT [facility] Comment: ANTIBODIES TO HCV NOT DETECTED. DOES NOT EXCLUDE THE POSSIBILITY OF EXPOSURE TO HCV. 12/15/2021 4:07 PM CDT us Ghulam Godfrey MD LABORATORY Final Result Performing Organization Address [facility] Co de Phone Number [facility] [address] [place] [address], * CHLAMYDIA GC RNA (12/15/2021 3:47 PM CDT) [facility] [address] SPEC DESCRIPTION URINE 12/16/19 22 5:27 PM CDT [facility] CHLAMYDIA RNA TMA NEGATIVE NEGATIVE 022 1:38 PM CDT [facility] Comment:PERFORMED BY NUCLEIC ACID AMPLIFICATION N.GONORRHOEAE RNA TMA NEGATIVE NEGATIVE 12/18/2021 1:38 PM CDT [facility] Comment:PERFORMED BY NUCLEIC ACID AMPLIFICATION URINE SPECIMEN / Unknown 12/15/2021 3:47 PM CDT us Ghulam Godfrey MD MICROBIOLOGY - GENERAL ORDERABLE S Final Result Performing Organization Address [facility] Co de Phone Number [facility] [address] [place] [address], * Cytopath Cerv/Vag Thin Layer (12/15/2021 9:58 AM CDT) [facility] [address] THIN PREP PAP ? [facility] ?[address] ?[place] [address] ? Department of Pathology ? Pathology Report ? CERVICAL/VAGINAL PAP SMEAR REPORT Name: CHE ANGEL ? Age: 8 1995 (Age: 26) ?Location: [facility] Sex: F ?Collected Date: 12/15/2021 Hospital #: [id number] ?Date Received: 12/18/2021 Date Reported: 12/18/2021 Provider: GHULAM GODFREY MD INTERPRETATION CERVICAL/ENDOCERVI LOC: ? SATISFACTORY FOR EVALUATION. ENDOCERVICAL/TRANS FORMATION ZONE COMPONENT PRESENT. ? NEGATIVE FOR INTRAEPITHELIAL LESION OR MALIGNANCY. Electronically Signed Out By Awa Ramsey, CT (ASCP) CLINICAL HISTORY Z3A.08 SCREENING PAP TEST ThinPrep Pap Test with HR HPV testing in patient > 21 years with ASC-US diagnosis. Date of Last Menstrual Period: ? 10/19/21 Menstrual Status: SPECIMEN SUBMITTED CERVICAL/ENDOCERVI LOC ?Specimen Received:1 Thin Prep Vial, Image Assisted Pap (SMD) ? Please note: The Pap smear is not a diagnostic test. ??It is a screening test. ??Negative results on combined screening (Pap test and HPV-DNA) have a high negative predictive value (99.1-100 percent) for cervical cancer. ??The pap test is not effective in detecting cervical adenocarcinoma. [facility] 12/15/2021 9:58 AM CDT 12/18/2021 9:58 AM CDT Comment:CERVICAL/ENDOCERVICA L us Ghulam Godfrey MD PATHOLOGY/CYTOLOGY ORDERABLES nal Result [facility] [address] [place] [address], from Last 3 Months or Most Recently Relevant to Health Maintenance Insurance Care Teams Custom Harvester Relationship Specialty Start Date End Date None, Provider, PCP - General 12/15/21
--- OUTSIDE RECORDS SUMMARY | 2024-09-29 02:35 | XMS_ITS | Data Portability ---
Author Organization [facility] Address [address] [place] [address] [place] [address] Assessment Encounter Date Assessment Date Assessment LastModified by Organization Details LastModified Time 09/05/2022 09/05/2022 Normal exam May resume normal activities contraceptive plan-- declines. FU for WWE 3 mos [email or web address] Not available 09/07/2022 09:37:25 12/31/2022 12/31/2022 healthy female exam patient declines std testing pap due 2024 contraception -declines for now synthroid refilled for 6 mos until pt finds new PCP. OTC Vit D3 5000 IU to start FU 1 year or prn Not available 01/14/2023 09:44:34 Plan of Treatment Reminders Order Date Submit Date Provider Last Modified By Organization Details Last Modified Time Details Appointments None recorded. Lab None recorded. Referral None recorded. Procedures None recorded. Surgeries None recorded. Imaging US, obstetric, limited 2021 022 [facility], [address], [address], [place], [address], 20:10:36 Medication Orders Synthroid 75 mcg tablet 2022 023 [email or web address] [facility], [facility], [place], [address], 09:38:24 Patient TargetsNo targets recorded. Patient InstructionsNo instructions recorded. Reason for Referral None Reported. Results Created Date Observation Date Name Description Value Unit Range Abnormal Flag Note LastModifiedBy Organization Detail LastModifiedTime 06/29/20 22 06/29/2022 CULTU RE: GROUP B STREP SCREE N, REFLE X SUSCE PTIBI LITY result report SEE RESULT S BELOW Test: Cultu re: Group B Strep , Refle x Susce ptibi lity ([facility]/ [facility]/K [facility] ) Speci men Sourc e: Vagin a/Rec chapis Speci men Type: Vagin al/Re ctal Speci men Date: 06/29 2:56 PM Resul t Date: 07/02 1:31 PM Resul t Statu s: Final resul t Abnor mal: No Resul ting Lab: [facility] [address] [facility] [address] Tel: [phone] CULTU RE ----- ----- ----- --- No Group B strep isola luis enrique at 2 days (kali ctive broth enhan cemen t) Not Available [facility] Infectious Disease [address] [place] [address], [address], 07/02/2022 14:33:15 07/04/20 22 07/04/2022 TSH, REFLE X FREE T4 TSH 0.64 uIU/m L 0.30-5 .33 Not Available [facility] (Lab) [address] [place], [address], 07/05/2022 05:31:26 09/05/19 23 09/05/2022 TSH, REFLE X FREE T4 TSH 0.62 uIU/m L 0.30-5 .33 Not Available [facility] (Lab) [address] [place], [address], 09/06/2022 07:35:46 12/19/1912/18/2022 TSH, REFLE X FREE T4 TSH 2.08 uIU/m L 0.30-5 .33 Not Available [facility] (Lab) [address] [place], [address], 12/19/2022 04:02:50 12/19/19 23 12/18/2022 VITAM IN D, 25-OH (TOTA L D2/D3 ) vitamin D, 25-hydroxy, total 26.9 NG/mL 30.0-1 00.[address] [place] of Defic iency : <20 ng/mL [facility] [facility] of Insuf ficie ncy: 20-29 ng/mL [facility] st[facility] of Suffi cienc y: 30-10 0 ng/mL [place] stive of Toxic ity: >150 ng/mL Not Available [facility] (Lab) [address], [place], [address], 12/19/2022 04:02:51 06/29/20 22 06/29/2022 imagi ng/di agnos tic resul t No observ ation record ed. TASHIA Grover [address], [place], [address], 07/17/2022 12:06:26 06/29/20 22 06/29/2022 US, obste tric, follo w-up No observ ation record ed. [email or web address] [place] [address], [place], [address], 06/29/2022 13:41:36 07/16/20 22 07/16/2022 non-s tress test No observ ation record ed. [email or web address] [facility] [address], [place], [address], 01/10/2023 14:07:56 07/17/20 22 07/17/2022 US, obste tric, limit ed No observ ation record ed. [email or web address] [place] [address], [place], [address], 07/17/2022 17:19:51 07/17/20 22 07/17/2022 US, obste tric, limit ed No observ ation record ed. TASHIA Grover [address], [place], [address], 07/29/2022 10:12:06 Result Notes None recorded. Problems Name Problem SNOMED Code Status Onset Date Resolution Date Notes Provider Name and Address Organization Details Recorded Time Pregnanc y 85666726 Completed 202111/08/2022 Jennifer Bohnensti ehl null, [facility] 3 11:30:46 Hypothyr oidism 83888230 Completed repeat 34-36w Jennifer Bohnensti ehl null, [facility] 3 11:30:38 RhD negative 693587707 Completed Rhogam received 05/16/22 Jennifer Bohnensti ehl null, [facility] 3 11:30:38 Hypothyr oidism 07687236 Active repeat 34-36w Jennifer Bohnensti ehl null, [facility] 3 11:30:38 RhD negative 337386305 Active Rhogam received 05/16/22 Jennifer Bohnensti ehl null, [facility] 3 11:30:38 Problem Notes None recorded. Procedures Surgical History Date Name Laterality Status Provider Name and Address Organization Details Recorded Time 12/15/2021 Date of Last Pap Smear completed [facility] 04/10/2022 12:13:25 tonsilectom y/adenoids completed [facility] 04/10/2022 10:20:38 Imaging Results Imaging Date Name Status LastModified by Organiz ation Details LastModified Time 06/29/2022 imaging/diag nostic result completed TASHIA Grover [address], [place], [address], 07/17/2022 12:06:26 06/29/2022 US, obstetric, follow-up completed [email or web address], [place], [address], 06/29/2022 13:41:36 07/16/2022 [email or web address] [address], [place], [address], 01/10/2023 14:07:56 07/17/2022 US, obstetric, limited completed [email or web address] [place] [address], [place], [address], 07/17/2022 17:19:51 07/17/2022 US, obstetric, limited completed TASHIA Lenore [address], [place], [address], 07/29/2022 10:12:06 Procedure Notes None recorded. Medical Equipment None Reported. Allergies No known drug allergies Medications Name Sig Start Date Stop Date Status Note LastModified by Organization Details LastModified Time hers 20ml acne zp (0.0125%) Apply 1 pump to face nightly 04/10 completed Not Available Not Available Not Available amoxicillin 500 mg capsule TAKE 1 CAPSULE EVERY SIX HOURS UNTIL GONE 12/31 completed Not Available Not Available Not Available amoxicillin 500 mg tablet TAKE 1 TABLET BY MOUTH TWICE DAILY FOR 7 DAYS 09/05 completed Not Available Not Available Not Available clindamycin 1 % topical gel APPLY TO FACE TWICE DAILY 04/10 completed Not Available Not Available Not Available pantoprazole 40 mg tablet,delay ed release TAKE 1 TABLET BY MOUTH EVERY DAY active Not Available Not Available No t Available Synthroid 75 mcg tablet Take 1 tablet every day by oral route 2022 active Not Available Not Available Not Avai lable Valtrex 1 gram tablet Take 1 tablet every 12 hours by oral route for 1 day. 2021 active Not Available Not Available Not Avai lable levothyroxin e 05/02 completed Not Available Not Available Not Available Vitals Date Recorded Body height Body mass index (BMI) Body weight Systolic blood pressure Diastolic blood pressure Provider Name and Address Organization Details Last Updated DateTime 07/20/2022 152.4 cm 31.1 kg/m2 17977.18 683 g 116 mm[Hg] 80 mm[Hg] Lucrecia Marley [facility] 2 10:25:51 Date Recorded Body height Body mass index (BMI) Body weight Systolic blood pressure Diastolic blood pressure Provider Name and Address Organization Details Last Updated DateTime 07/25/2022 152.4 cm 30.5 kg/m2 22846.40 972 g 120 mm[Hg] 82 mm[Hg] [facility] 2 10:37:16 Date Recorded Body height Body mass index (BMI) Systolic blood pressure Diastolic blood pressure Provider Name and Address Organization Details Last Updated DateTime 09/05/2022 152.4 cm 27 kg/m2 117 mm[Hg] 65 mm[Hg] [facility] 09/05/2022 16:09:54 Date Recorded Body weight Provider Name an d Address Organization Details Last Updated DateTime 09/05/2022 52668.64177 g Jennifer Zhang [facility] 11/08/2022 11:30:43 Date Recorded Body height Body mass index (BMI) Body weight Systolic blood pressure Diastolic blood pressure Provider Name and Address Organization Details Last Updated DateTime 12/31/2022 152.4 cm 27.5 kg/m2 83737.52 g 112 mm[Hg] 68 mm[Hg] [facility] 3 17:09:25 Social History Question Answer Notes LastModified by Organizat ion Details LastModified Time Tobacco Smoking Status Never Smoker [facility] 04/10/2022 10:21:14 What Is Your Level Of Alcohol Consumption? None Information not available 04/10/2022 Do You Use Any Illicit Or Recreational Drugs? No Information not available 04/10/2022 Has Tobacco Cessation Counseling Been Provided? No Information not available 04/10/2022 Do You Or Have You Ever Used Any Other Forms Of Tobacco Or Nicotine? No Information not available 04/10/2022 Sex: Unknown Functional Status None recorded. Mental Status None recorded. Family History Relationship Description Onset Age of this Age Resolved Age Notes LastModified by Organization Details LastModified Time Maternal Grandmother Diabetes mellitus [email or web address] Not available 2021 10:25:27 Father Disorder of thyroid gland [email or web address] Not available 2021 10:25:38 Mother Hypertensive disorder [email or web address] Not available 2021 12:13:39 Medical History Condition Response Other N Blood Transfusion N Dermatologic Disorders N Gestational Diabetes N Anxiety Disorder N Autoimmune disease N Arthritis N Polyps N Infertility N Acid Reflux (GERD) N Cancer N Varicosities N Stroke N Neurologic/Epilepsy N Fibromyalgia N Headaches N Kidney Disease N Heart Problems N Kidney or Bladder Problems N Eating Disorder N Art (IVF or FET) N Hepatitis/Liver Disease N No Past Medical History N Urinary Tract Infection N Asthma N Trauma/Violence N Thrombophilias N Allergies (Food, seasonal, environmental ) N Breast Cancer N Drug/Latex Allergies/Reactions N Lung Disease N Defects or Inherited Disease N Breast Problem N Hematologic disorders N Anesthesia Complications N History of STI N Deep Vein Thrombosis N Polycystic ovary syndrome N History of abnormal pap N Endometriosis N High Cholesterol N Thyroid Problems Y GI Problems N Anemia N Psychiatric Illness N Ovarian Cancer N Diabetes N Pulmonary (TB, Asthma) N Eczema N Abuse/Domestic Violence N Depression/ depression N Heart Disease N Pre-Eclampsia N Hypertension N Osteoporosis N Gynecological History Statement/Question Response Age of first menstrual cycle 11 Date of Last Pap Smear 12/15/2021 Current Control Method None Date of LMP 10/19/2021 Obstetrics History GPAL:G 2 P 2 0 0 2 Type Value Full Term 2 Living 2 Total 2 Past Encounters Encounter ID Performer Location Encounter Start Date Encounter Closed Date Diagnosis/Indication Diagnosis SNOMED-CT Code Diagnosis ICD10 Code Diagnosis Note [id number] Jerrica Sanchez [place] [address] [address] 04/10/2022 10:13:20 04/10/2022 12:24:51 screening 498751836 Z36.3 [id number] Triny Choi MD [place] [address] [address] 04/10/2022 10:14:14 04/11/2022 18:45:39 Routine care 182306912 Z34.92 Hypothyroidism 91616378 E03.9 RhD negative 610934429 Z 01.83 [id number] Jerrica Sanchez [place] [address],[place] [address] 05/02/2022 09:40:43 05/02/2022 11:14:38 screening 100461773 Z36.2 Z3A.27 [id number] MD Nathan Howell [address],[place] [address] 05/02/2022 09:41:39 05/02/2022 14:08:03 Routine care 828623309 Z34.92 [id number] MD Nathan Howell [address] [address] 05/15/2022 09:17:45 05/15/2022 10:04:41 Routine care 781329267 Z34.92 RhD negative 001611162 Z 01.83 [id number] MD Nathan Howell [address],[place] [address] 05/30/2022 09:35:45 05/30/2022 10:27:02 Routine care 001972249 Z34.92 [id number] Triny Choi MD [place] [address],[place] [address] 06/11/2022 09:48:31 06/11/2022 14:32:16 Routine care 873672165 Z34.92 [id number] [facility] [address],[place] [address] 06/11/2022 11:22:06 06/11/2022 12:03:22 Reduced movement 049182512 O36.8199 [id number] Jerrica Sanchez [place] [address],[place] [address] 06/29/2022 11:07:08 06/29/2022 13:37:02 Pre-existing maternal disease complicating 7836659532 6106 O99.891 Z3A.36 [id number] MD Stacie [place] [address],[place] [address] 06/29/2022 11:07:49 06/29/2022 13:15:28 Routine care 000881640 Z34.92 Hypothyroidism 76746200 E03.9 [id number] Triny Choi MD [place] [address],[place] [address] 07/04/2022 12:05:01 07/04/2022 14:25:33 Routine care 199251015 Z34.92 Hypothyroidism 72430511 E03.9 [id number] Triny Choi MD [place] [address],[place] [address] 07/11/2022 10:00:03 07/11/2022 10:43:48 Routine care 225093489 Z34.92 [id number] Jyotisoraya Jones [place] [address],[place] [address] 07/17/2022 16:14:25 07/17/2022 17:52:05 Reduced movement 390863094 O36.8130 Z3A.38 [id number] Triny Choi MD [place] [address],[place] [address] 07/20/2022 10:03:25 07/20/2022 11:28:40 Routine care 220216967 Z34.92 [id number] Triny Choi MD [place] [address],[place] [address] 07/25/2022 10:29:15 07/25/2022 10:51:16 Routine care 267855799 Z34.92 [id number] Triny Choi MD [place] [address],[place] [address] 09/05/2022 15:45:40 09/07/2022 14:36:33 care 977451815 Z39.2 [id number] Triny Choi MD [place] [address] [place] [address] 12/31/2022 16:45:41 01/01/2023 18:10:59 Gynecologic examination 73217401 Z01.419 Hypothyroidism 95899016 E03.9 Health Concerns Section Related Observation LastModified by Organization Detai ls LastModified Time None Recorded Concern Status LastModified by Organization Details LastModified Time None Recorded Advance Directives Directive None Recorded Payers Encounter Date Sequence Insurance Name Policy Number Policy Eric Covered Member ID Eric Member ID Guarantor Name 07/17/2022 1 [place] [id number] Keron R Stanley [id number] Minal Nickel 07/20/2022 1 [place] [id number] Keron R Stanley [id number] Minal Nickel 07/25/2022 1 [place] [id number] Keron R Stanley [id number] Minal Nickel 09/05/2022 1 [place] [id number] Keron R Stanley [id number] Minal Nickel 12/31/2022 1 [place] [id number] Keron R Stanley [id number] Minal Nickel Notes Date Note Type Note Provider Name and Address Organization Details Recorded Time 09/05/2022 text/html Patient is a 27yo presenting for a 4 week visit. She had a on 07/30 at 40 weeks GA. Baby Sienna was 8-10, doing great. Doing well overall. . Normal lochia. Pain- none. Bowel and bladder function normal. Hotchkiss score 0 Period-no Annual due: now Concerns: none Triny Choi MD [address], [place], [address], [facility] 09/07/2022 09:37:51 12/31/2022 text/html Patient is a 27yo who presents for an annual exam. , not desiring BC. Recent TSH was wnl and Vit D was 26.8. last pap-12/2021 sexually active-y contraception-no ne seatbelts-y exercise-y depression-denie s domestic violence-denies tobacco-n concerns- Triny Choi MD [address], [place], [address], [facility] 01/14/2023 09:44:55 OBGyn Episode Ob Episode Information Episode Created Date Number of Fetuses Patient Bloodtype Patient rh Status Prepregnancy Weight lbs Domestic Partner Domestic Partner Phone Father Name Operating Theatre Technician Status 04/10/20 22 1 CLOSED Fetus Data First Name Last Name Admitted to NICU Weight (g) Sex Living Outcome Pediatric Complications Fetus ID Race Codes Race Delivery Type 3713.55 7704 F Full Term [id number] Vaginal Delivery Kurt Calculation Initial Kurt Date Initial Exam Date Initial Exam Provider Initial Ultrasound Date Last Menstrual Period Date Ultra Sound Weeks Gestation 0 Eighteen To Twenty Week Kurt Update Ultra Sound Date Fundal Height At Umbil Quickening Date Ultra Sound Latest Weeks Gestation Final Kurt Confirmed By Final Kurt Confirmed Date Final Kurt Date Ultra Sound Latest Days Gestation 0 0 Menstrual History Last Menstrual Date Menses Monthly On Bcp Conception Prior Menses Frequency Hcg Plus Date Menarche Onset Age Delivery Information Delivery Date Delivery Type Labor Anesthesia Weeks Gestation Incision Type Labor Labor Length Hrs Delivered By Post Complications Tubal Sterilization Discharge Date Comments 0 40.5 oligo Discharge Information Feeding Method Contraceptive Method Maternal HG B and HCT Levels Ob Episode Information Episode Created Date Number of Fetuses Patient Bloodtype Patient rh Status Prepregnancy Weight lbs Domestic Partner Domestic Partner Phone Father Name Operating Theatre Technician Status 04/10/20 22 1 CLOSED Fetus Data First Name Last Name Admitted to NICU Weight (g) Sex Living Outcome Pediatric Complications Fetus ID Race Codes Race Delivery Type Sienna 3912.23 1 F true Full Term [id number] Vaginal Delivery Problems Problem Notes Choi pt Problem Name Start Date End Date Resolution Snomed Code Not e Hypothyroidism 79116558 repea t 34-36w RhD negative 699960964 Rhogam received 05/16/22 Kurt Calculation Initial Kurt Date Initial Exam Date Initial Exam Provider Initial Ultrasound Date Last Menstrual Period Date Ultra Sound Weeks Gestation 07/26/2022 04/10/2022 10/19/2021 0 Eighteen To Twenty Week Kurt Update Ultra Sound Date Fundal Height At Umbil Quickening Date Ultra Sound Latest Weeks Gestation Final Kurt Confirmed By Final Kurt Confirmed Date Final Kurt Date Ultra Sound Latest Days Gestation 0 [email or web address] 04/11/2022 07/26/20 22 0 Pre- Flowsheet Flowsheet Date 04/10/2022 Torre Score Blood Edema Fundus Height Fundus Units Glucose Ketones Leukocytes Nitrite Labor Signs Protein Cervic Dilation Cervic Effacement Cervic Station neg none none trace Type Weight in lbs Pre/Post Dialysis Refused Weight 149.385990790471 BP Diastolic BP Location Tested BP Systolic BP Type 59 96 Fetus Heart Rate Present A 145 Fetus Movement A Yes Comments Minal is a 26o at 24.5 who presents as a transfer of care from [place]. She has hypothyroidism and has not had a TSH since December, will check today. She is RH neg, will get her orders for Rhogam next visit. Anatomy US today wnl and comlete except for 4ch and RVOT. REpeat US next and GCT next. She had a term that was uncomplicated except by oligo at 40+ weeks forwhich she was induced. Flowsheet Date 05/02/2022 Torre Score Blood Edema Fundus Height Fundus Units Glucose Ketones Leukocytes Nitrite Labor Signs Protein Cervic Dilation Cervic Effacement Cervic Station Type Weight in lbs Pre/Post Dialysis Refused BP Diastolic BP Location Tested BP Systolic BP Type Fetus Heart Rate Present Fetus Movement Comments Flowsheet Date 05/02/2022 Torre Score Blood Edema Fundus Height Fundus Units Glucose Ketones Leukocytes Nitrite Labor Signs Protein Cervic Dilation Cervic Effacement Cervic Station neg none none trace Type Weight in lbs Pre/Post Dialysis Refused Weight 152.797360640139 BP Diastolic BP Location Tested BP Systolic BP Type 75 109 Fetus Heart Rate Present A 125 Fetus Movement A Yes Comments Doing well. US today anatomy now complete and wnl. GCT done. Rhogam order given. Flowsheet Date 05/15/2022 Torre Score Blood Edema Fundus Height Fundus Units Glucose Ketones Leukocytes Nitrite Labor Signs Protein Cervic Dilation Cervic Effacement Cervic Station neg none 30 none trace Type Weight in lbs Pre/Post Dialysis Refused Weight 155.86301547714 BP Diastolic BP Location Tested BP Systolic BP Type 75 111 Fetus Heart Rate Present A 140 Fetus Movement A Yes Comments Doing well, no concerns. GCT wnl. Has not done Rhogam yet, will do this week. Discussed and encouraged Tdap, will do. Flowsheet Date 05/30/2022 Torre Score Blood Edema Fundus Height Fundus Units Glucose Ketones Leukocytes Nitrite Labor Signs Protein Cervic Dilation Cervic Effacement Cervic Station neg trace 32 none trace Type Weight in lbs Pre/Post Dialysis Refused Weight 158.137480650936 BP Diastolic BP Location Tested BP Systolic BP Type 76 116 Fetus Heart Rate Present A 150 Fetus Movement A Yes Comments Doing great. No cocnerns. Go t Rhogam. will do Tdap soon. Had lower fluid at end of last , will check US at 36w. Flowsheet Date 06/11/2022 Torre Score Blood Edema Fundus Height Fundus Units Glucose Ketones Leukocytes Nitrite Labor Signs Protein Cervic Dilation Cervic Effacement Cervic Station neg none none trace Type Weight in lbs Pre/Post Dialysis Refused Weight 155.38191867438 BP Diastolic BP Location Tested BP Systolic BP Type 74 111 Fetus Heart Rate Present A 140 Fetus Movement A Decreased Comments Doing fine except decreased FM over the weekend. NSt reactive TSH next visit. Tdap done. Encouraged flu shot. Flowsheet Date 06/11/2022 Torre Score Blood Edema Fundus Height Fundus Units Glucose Ketones Leukocytes Nitrite Labor Signs Protein Cervic Dilation Cervic Effacement Cervic Station Type Weight in lbs Pre/Post Dialysis Refused BP Diastolic BP Location Tested BP Systolic BP Type Fetus Heart Rate Present Fetus Movement Comments Flowsheet Date 06/29/2022 Torre Score Blood Edema Fundus Height Fundus Units Glucose Ketones Leukocytes Nitrite Labor Signs Protein Cervic Dilation Cervic Effacement Cervic Station Type Weight in lbs Pre/Post Dialysis Refused BP Diastolic BP Location Tested BP Systolic BP Type Fetus Heart Rate Present Fetus Movement Comments Flowsheet Date 06/29/2022 Torre Score Blood Edema Fundus Height Fundus Units Glucose Ketones Leukocytes Nitrite Labor Signs Protein Cervic Dilation Cervic Effacement Cervic Station neg trace none trace 1cm 50% Type Weight in lbs Pre/Post Dialysis Refused Weight 157.805509392516 BP Diastolic BP Location Tested BP Systolic BP Type 81 119 Fetus Heart Rate Present A 140 Fetus Movement A Yes Comments Doing well. Good FM. GBS don e and discussed. U:S today 67%. FU weekly. 1.550. TSH next visit. Flowsheet Date 07/04/2022 Torre Score Blood Edema Fundus Height Fundus Units Glucose Ketones Leukocytes Nitrite Labor Signs Protein Cervic Dilation Cervic Effacement Cervic Station neg none 35 none trace Type Weight in lbs Pre/Post Dialysis Refused Weight 157.805431134529 BP Diastolic BP Location Tested BP Systolic BP Type 78 111 Fetus Heart Rate Present A 135 Fetus Movement A Yes Comments Doing well. TSH today. GBS n g. Declines IOL until 41w. Flowsheet Date 07/11/2022 Torre Score Blood Edema Fundus Height Fundus Units Glucose Ketones Leukocytes Nitrite Labor Signs Protein Cervic Dilation Cervic Effacement Cervic Station neg none 37 none trace Type Weight in lbs Pre/Post Dialysis Refused Weight 158.308711191397 BP Diastolic BP Location Tested BP Systolic BP Type 77 115 Fetus Heart Rate Present A 135 Fetus Movement A Yes Comments Doing fine, NOt a lot of con tractions. TSH wnl, will recheck pp. lWOuld like IOL if undelivered by then, will schedule. Will check cervix next week. Flowsheet Date 07/17/2022 Torre Score Blood Edema Fundus Height Fundus Units Glucose Ketones Leukocytes Nitrite Labor Signs Protein Cervic Dilation Cervic Effacement Cervic Station Type Weight in lbs Pre/Post Dialysis Refused BP Diastolic BP Location Tested BP Systolic BP Type Fetus Heart Rate Present Fetus Movement Comments Flowsheet Date 07/20/2022 Torre Score Blood Edema Fundus Height Fundus Units Glucose Ketones Leukocytes Nitrite Labor Signs Protein Cervic Dilation Cervic Effacement Cervic Station neg trace 38 trace 3cm 60% -2 Type Weight in lbs Pre/Post Dialysis Refused Weight 159.429844227918 BP Diastolic BP Location Tested BP Systolic BP Type 80 116 Fetus Heart Rate Present A 140 Fetus Movement A Yes Comments Doing great, hoping labor wa its a week. IOL 07/30 if needed. Precautions given. Flowsheet Date 07/25/2022 Torre Score Blood Edema Fundus Height Fundus Units Glucose Ketones Leukocytes Nitrite Labor Signs Protein Cervic Dilation Cervic Effacement Cervic Station trace none trace 4cm 60% -2 Type Weight in lbs Pre/Post Dialysis Refused Weight 156.637831397613 BP Diastolic BP Location Tested BP Systolic BP Type 82 120 Fetus Heart Rate Present A 120 Fetus Movement A Yes Comments Diong fine, no sx labor. Cer vix 3.5. IOL saturday if no labor before. Flowsheet Date 09/05/2022 Torre Score Blood Edema Fundus Height Fundus Units Glucose Ketones Leukocytes Nitrite Labor Signs Protein Cervic Dilation Cervic Effacement Cervic Station Type Weight in lbs Pre/Post Dialysis Refused Weight [id number] BP Diastolic BP Location Tested BP Systolic BP Type 65 117 Fetus Heart Rate Present Fetus Movement Comments Menstrual History Last Menstrual Date Menses Monthly On Bcp Conception Prior Menses Frequency Hcg Plus Date Menarche Onset Age 0210/19/2021 Genetic Screening And Infection History Question Response Note Mental Retardation/Autism false Patient's Age Will Be 35 Years Or Older At Estim ated Date of Delivery false Thalassemia (Turkmen, Latvian, Mediterranean, Or Background): MCV < 80 false Neural Tube Defect (Meningomyelocele, Spina Bifi da, Or Anencephaly) false Congenital Heart Defect false Down Syndrome false Geovanni-Sachs (eg, Catholic, Cajun, Greenlandic-Allyn) f alse Scotty Disease false Sickle Cell Disease Or Trait () false Hemophilia Or Other Blood Disorders false Muscular Dystrophy false Cystic Fibrosis false Ken's Chorea false Intellectual Disability/Autism false If Yes, Was Person Tested For Fragile X? false Other Inherited Genetic Or Chromosomal Disorder false Maternal Metabolic Disorder (eg, Type 1 Diabetes , PKU) false Patient Or Baby's Father Had A Child With Defects Not Listed Above false Recurrent Loss, Or A Stillbirth false Medications (including Suppl ements, Vitamins, Herbs, OTC Drugs), Illicit/Recreational Drugs, Alcohol false If Yes, Agent(s) And Strength/Dosage false Any Other Genetic History false Live With Someone With TB Or Exposed To TB false Patient Or Partner Has History Of Genital Herpes false Rash Or Viral Illness Since Last Menstrual Perio d false History Of STD, Gonorrhea, Chlamydia, HPV, Syphi lis false Other Infection History false History of HIV false History of Hepatitis false Prior GBS-infected child false Hemoglobinopathy Or Carrier false Other Structural Defect false Recent Travel History Outside of Country false Delivery Information Delivery Date Delivery Type Labor Anesthesia Weeks Gestation Incision Type Labor Labor Length Hrs Delivered By Post Complications Tubal Sterilization Discharge Date Comments 2 None Regional-Ep idural 40.4 false Triny Choi MD Discharge Information Feeding Method Contraceptive Method Maternal HG B and HCT Levels Breast
[2024-09-29 03:04] LABS: Basophils Percent Auto 0.4 % (0.2-1.2); Eosinophils Absolute Auto 0.1 K/mm3 (0-0.3); Eosinophils Percent Auto 0.9 % (0-4.4); Hematocrit 31.6 % (37.0-47.0); Hemoglobin 10.4 g/dL (12.0-15.0); Immature Granulocyte Absolute 0.08 K/mm3 (0.00-0.031); Immature Granulocyte Percent A 0.8 % (0-0.5); Lymphocytes Absolute Auto 2.58 K/mm3 (0.9-3.2); Mean Corpuscular HGB Conc 32.9 g/dl (32-36); Mean Corpuscular Hemoglobin 27.4 pg (26-34); Mean Corpuscular Volume 83.4 fl (80-100); Mean Platelet Volume 9.1 fl (7.4-10.4); Monocytes Absolute Auto 0.6 K/mm3 (0.1-0.6); Neutrophils Absolute Auto 6.9 K/mm3 (1.3-6.7); Neutrophils Percent Auto 66.9 % (45.5-73.1); Platelet Count Result 311 k/mm3 (150-375); Red Blood Count 3.79 M/mm3 (4.2-5.4); Red Cell Distribution Width 14.8 % (11.5-14.5); White Blood Count 10.3 K/mm3 (4.5-10.0)
--- NOTE | 2024-09-29 03:11 | LDADM ---
This patient, Minal Orlando, was admitted to Labor/Delivery/Recovery 104 on 09/29/24 at 02:21. Plans for labor, pain management and were discussed with patient. Patient/family oriented to hospital policies and general routines including ID bracelet, bed and alarms, visiting hours, pain management, procedures, bathroom and other care routines, personal items, smoking policy, room service/diet and guest tray routines, infant security routines, and visiting hours. Patient/Family are encouraged to report perceived risks to care and to ask questions if they do not understand what they are told or what they should do. See OBIX for further documentation.
[2024-09-29] MEDS: LACTATED RINGERS 1,000 ML 125 ML IV CONT (03:47)
--- NOTE | 2024-09-29 04:14 | P.PNAN_ITS ---
Anes - Eval Pre Procedure Procedure: Labor Epidural Date/Time: 09/29/24 04:14 Surgeon: Stew Preop Diagnosis: Labor Pain Pre Op Diagnosis: IOL Patient Data Age: 29 Gender: F Height: Weight: Last Vital Signs Pulse 100 09/29/24 03:30 BP 125/83 09/29/24 03:30 Pulse Ox 99 09/29/24 04:11 Allergies Allergy/AdvReac Type Severity Reaction Status Date / Time No Known Allergies Allergy Verified 09/05/24 13:27 Home Medications ?Medication ?Instructions ?Recorded ?Confirmed ?Type fluoxetine 10 mg capsule 30 mg (3 x 10 mg) PO DAILY 3 05/19/24 09/05/24 Rx months #270 caps ferric maltol 30 mg capsule 60 mg PO HS 09/04/24 09/05/24 History (Accrufer) vit no.95-ferrous 1 tablet PO DAILY 09/04/24 09/05/24 History fumarate 28 mg-folic acid 800 mcg tablet () levothyroxine 75 mcg tablet 75 mcg PO DAILY #90 tabs 09/11/24 Rx Laboratory Tests 09/29/24 02:57 WBC 10.3 H K/mm3 (4.5-10.0) RBC 3.79 L M/mm3 (4.2-5.4) Hgb 10.4 L g/dL (12.0-15.0) Hct 31.6 L % (37.0-47.0) MCV 83.4 fl (80-100) MCH 27.4 pg (26-34) MCHC 32.9 g/dl (32-36) RDW 14.8 H % (11.5-14.5) Plt Count 311 k/mm3 (150-375) MPV 9.1 fl (7.4-10.4) Immature Gran % (Auto) 0.8 H % (0-0.5) Neut % (Auto) 66.9 % (45.5-73.1) Lymph % (Auto) 25.0 % (18.3-44.2) Ocean % (Auto) 6.0 % (2.6-8.5) Eos % (Auto) 0.9 % (0-4.4) Baso % (Auto) 0.4 % (0.2-1.2) Lymph # (Auto) 2.58 K/mm3 (0.9-3.2) Ocean # (Auto) 0.6 K/mm3 (0.1-0.6) Eos # (Auto) 0.1 K/mm3 (0-0.3) Baso # (Auto) 0.0 K/mm3 (0.0-0.1) Abs Immat Gran (auto) 0.08 H K/mm3 (0.00-0.031) Absolute Neuts (auto) 6.9 H K/mm3 (1.3-6.7) Absolute Nucleated RBC 0.000 K/mm3 (0.0-0.012) Nucleated RBC % 0.0 % (0.0-0.2) RPR Pending HIV 1&2 Ab/P24 Ag 4thGn Pending : gestational age (CALEB 09/27/24) Patient hx anesthesia problems: none Family hx anesthesia problems: none Results Review: All pre-operative results and documents have been reviewed as part of the pre- operative evaluation. FORMERLY [facility], [facility]–1983 Past Medical History Medical History Iron deficiency anemia Hypothyroid IUP (intrauterine ), incidental Family History Family History Grandparent Diabetes mellitus Ovarian cancer Social History Social History Smoking status: Never smoker Alcohol intake: never Substance use: never Do You Feel Safe in your Home?: Yes Lack of Transportation: No Lack of Food: Never True Current Housing: I Have Housing Concerned About Future Housing: No Difficulty Paying Gas/Electric Bills: No Difficulty Paying for Meds: No Currently Unemployed: No Education: Trade/Vocational Certificate Difficulty w/ Childcare or Family Care: No Spiritual care concerns: No Exam Day of Procedure 09/29/24 04:14 Patient weight: normal Heart: regular rate and rhythm Lungs: normal air movement Airway: Mallampati scale class II Neurological: alert and oriented
[2024-09-29 04:33] LABS: HIV 1/2 Ab P24 Ag Result Negative (Negative)
[2024-09-29 04:51] LABS: Rapid Plasma Reagin Non-Reactive (NonReactive)
[2024-09-29] MEDS: PHENYLEPHRINE 1,000 MCG/10 ML SYRINGE 100 MCG IV PUSH ×3 (05:10→05:43)
--- NOTE | 2024-09-29 05:41 | PM.IMHP ---
H&P: HPI History of Present Illness Date/Time: 09/29/24 05:41 Chief Complaint: Labor at term Narrative: 29-year-old 3 para 2 last menstrual period is unknown, EDC is 09/27/2024, confirmed by early ultrasound and visit presents at 39 weeks gestation in active labor. She is negative for group B strep. She is hypothyroid but has been euthyroid on replacement throughout the . Review of Systems Review of Systems: A 10 system review of systems was completed on the patient and is negative except for what is stated in the HPI. Nursing and ancillary documentation was reviewed. COUNTS INCLUDE 234 BEDS AT THE [facility] Past Medical History Medical History Iron deficiency anemia Hypothyroid IUP (intrauterine ), incidental Family History Family History Grandparent Diabetes mellitus Ovarian cancer Social History Social History Smoking status: Never smoker Alcohol intake: never Substance use: never Do You Feel Safe in your Home?: Yes Lack of Transportation: No Lack of Food: Never True Current Housing: I Have Housing Concerned About Future Housing: No Difficulty Paying Gas/Electric Bills: No Difficulty Paying for Meds: No Currently Unemployed: No Education: Trade/Vocational Certificate Difficulty w/ Childcare or Family Care: No Spiritual care concerns: No Meds Home Medications and Allergies Home Medications ?Medication ?Instructions ?Recorded ?Confirmed ?Type fluoxetine 10 mg capsule 30 mg (3 x 10 mg) PO DAILY 3 05/19/24 09/05/24 Rx months #270 caps ferric maltol 30 mg capsule 60 mg PO HS 09/04/24 09/05/24 History (Accrufer) vit no.95-ferrous 1 tablet PO DAILY 09/04/24 09/05/24 History fumarate 28 mg-folic acid 800 mcg tablet () levothyroxine 75 mcg tablet 75 mcg PO DAILY #90 tabs 09/11/24 Rx Allergies Allergy/AdvReac Type Severity Reaction Status Date / Time No Known Allergies Allergy Verified 09/05/24 13:27 Vital Signs Vital Signs - 24 hr 09/29/24 02:59 09/29/24 03:01 09/29/24 03:02 Pulse Rate 97 125 H Blood Pressure 114/68 150/77 H Pulse Oximetry 98 91 09/29/24 03:07 09/29/24 03:12 09/29/24 03:16 Pulse Rate 130 H Blood Pressure 119/79 Pulse Oximetry 99 98 98 09/29/24 03:21 09/29/24 03:26 09/29/24 03:30 Pulse Rate 100 Blood Pressure 125/83 Pulse Oximetry 99 99 09/29/24 03:31 09/29/24 03:36 09/29/24 03:41 Pulse Rate Blood Pressure Pulse Oximetry 98 98 98 09/29/24 03:46 09/29/24 03:51 09/29/24 03:56 Pulse Rate Blood Pressure Pulse Oximetry 100 98 100 09/29/24 04:01 09/29/24 04:06 09/29/24 04:11 Pulse Rate Blood Pressure Pulse Oximetry 100 100 99 09/29/24 04:16 09/29/24 04:20 09/29/24 04:21 Pulse Rate 104 H Blood Pressure 129/83 Pulse Oximetry 100 100 09/29/24 04:26 09/29/24 04:28 09/29/24 04:31 Pulse Rate 109 H 110 H 179 H Blood Pressure 136/82 146/70 H 120/95 H Pulse Oximetry 100 100 09/29/24 04:33 09/29/24 04:36 09/29/24 04:38 Pulse Rate 121 H 137 H 147 H Blood Pressure 120/61 107/52 L 96/56 L Pulse Oximetry 100 09/29/24 04:41 09/29/24 04:43 09/29/24 04:46 Pulse Rate 124 H 117 H 148 H Blood Pressure 103/57 L 98/61 L 80/47 L Pulse Oximetry 100 99 09/29/24 04:48 09/29/24 04:51 09/29/24 04:53 Pulse Rate 128 H 124 H 121 H Blood Pressure 87/50 L 91/51 L 96/52 L Pulse Oximetry 100 09/29/24 04:54 09/29/24 04:55 09/29/24 04:56 Pulse Rate 102 H 86 Blood Pressure 86/48 L 97/51 L Pulse Oximetry 99 09/29/24 04:58 09/29/24 05:00 09/29/24 05:01 Pulse Rate 102 H 151 H Blood Pressure 97/72 L 85/46 L Pulse Oximetry 99 09/29/24 05:03 09/29/24 05:05 09/29/24 05:06 Pulse Rate 93 137 H Blood Pressure 105/71 92/62 L Pulse Oximetry 100 09/29/24 05:08 09/29/24 05:10 09/29/24 05:11 Pulse Rate 149 H 117 H Blood Pressure 89/51 L 93/63 L Pulse Oximetry 100 09/29/24 05:13 09/29/24 05:15 09/29/24 05:17 Pulse Rate 76 86 Blood Pressure 109/67 97/62 L Pulse Oximetry 98 98 09/29/24 05:18 09/29/24 05:21 09/29/24 05:22 Pulse Rate 79 81 Blood Pressure 110/88 111/65 Pulse Oximetry 100 09/29/24 05:23 09/29/24 05:25 09/29/24 05:27 Pulse Rate 83 87 Blood Pressure 100/75 103/65 Pulse Oximetry 100 09/29/24 05:28 09/29/24 05:29 09/29/24 05:30 Pulse Rate 97 81 Blood Pressure 107/63 102/59 L Pulse Oximetry 98 09/29/24 05:33 09/29/24 05:34 09/29/24 05:35 Pulse Rate 149 H 137 H Blood Pressure 79/45 L 57/48 L Pulse Oximetry 100 09/29/24 05:38 09/29/24 05:39 09/29/24 05:40 Pulse Rate 79 92 Blood Pressure 87/57 L 93/62 L Pulse Oximetry 98 Exam Const: General: cooperative, healthy appearing and comfortable Nutritional Appearance: average body habitus Orientation/consciousness: oriented to person, oriented to place and oriented to time HENMT: Head: normal to inspection Resp: Effort & Inspection: normal respiratory effort Cardio: Rate: regular rate Rhythm: regular rhythm Heart sounds: S1 normal heart sound present and S2 normal heart sound present GI: Inspection: normal to inspection ( Gravid soft uterus) Auscultation: normal bowel sounds : External Female Exam: normal external appearance Speculum Exam - Vagina: normal appearance of the vagina Speculum Exam - Cervix: normal appearance of the cervix (5cm heart tones reassuring) H&P: Results Labs Labs: Short CBC 09/29/24 Range/Units 02:57 WBC 10.3 H (4.5-10.0) K/mm3 Hgb 10.4 L (12.0-15.0) g/dL Hct 31.6 L (37.0-47.0) % Plt Count 311 (150-375) k/mm3 Assessment and Plan Assessment and plan (1) IUP (intrauterine ), incidental: Code(s): Z33.1 - state, incidental Status: Acute Plan spontaneous vaginal delivery expected. Epidural is in and working
--- NOTE | 2024-09-29 06:12 | PM.OBPNLAB ---
Pain Control Date/time seen: 09/29/24 06:12 Pain control: tolerating well and epidural Pelvic Exam Dilation (cm): 9 Effacement (%): 100 station: +1 Amniotic membrane status: Leaking
[2024-09-29] MEDS: OXYTOCIN 30 UNITS/NS 500 ML 30 UNITS/500 ML BAG 999 UNITS IV CONT (06:40)
--- NOTE | 2024-09-29 06:44 | PM.OBPRVD ---
OB - Vaginal Delivery Note Procedure Delivery date: 09/29/24 Induction method: None Delivery monitor: External FHT and External Uterine Route of delivery: Episiotomy description: None Laceration Description: None Quantitative Blood Loss (ml): 62 Anesthesia type: Epidural Disposition: Floor Complications: No immediate complications Narrative: The patient was admitted in active labor at 39 weeks gestations she rapidly progressed to complete had epidural anesthesia placed she pushed delivered head spontaneously and cyst KINGS position. Nuchal cord checked none was noted a mild shoulder dystocia was noted nurse paps are the patient was placed and make Heath slight rotation counterclockwise was undertaken and pressure from the suprapubic area with nurse were able to deliver the shoulders. Cord clamped x2 and cut infant passed off the table given Apgars of 8 [id number] 9 [id number]. Cord blood was drawn. Placenta delivered intact spontaneously. 20units Pitocin placed IV to help firm the uterus. After inspecting lateral sidewalls no tears or lacerations were noted. There were no immediate complications and both arms appeared strong with no injury Baby Date of : 09/29/24 Time of : 06:34 Gestational Age by Date: 41 gender: Female presentation: vertex position: Left Occiput Anterior Placenta delivery description: Spontaneous Cord Vessel Description: 3 Vessels score one minute: 8 score five minutes: 9
--- NOTE | 2024-09-29 06:46 | PM.DS ---
DS: Admitting Diagnosis Discharge Date 09/30/2024 Admitting Diagnosis term DS: Discharge Diagnosis Discharge Diagnosis (1) , delivered: Code(s): O80 - Encounter for full-term uncomplicated delivery Status: Acute DS: Summary Hospital Course Reason for hospitalization: the patient was admitted in active labor and underwent spontaneous vaginal delivery on 09/29/2024 Hospital Course: patient's hospital course unremarkable. She remained afebrile. She was up, voiding without difficulty, eating regular diet, ambulating, and generally without complaints. Time Spent with Patient Time attestation: Total time spent providing and/or coordinating discharge services: Exam Const: General: cooperative, healthy appearing and comfortable Nutritional Appearance: average body habitus Orientation/consciousness: oriented to person, oriented to place and oriented to time HENMT: Head: normal to inspection Resp: Effort & Inspection: normal respiratory effort Cardio: Rate: regular rate Rhythm: regular rhythm Heart sounds: S1 normal heart sound present and S2 normal heart sound present GI: Inspection: normal to inspection ( Fundus firm below umbilicus) DS: Data Data Completed and Pending Labs on day of discharge: Labs from last 24 hours 09/29/24 02:57 WBC 10.3 H RBC 3.79 L Hgb 10.4 L Hct 31.6 L MCV 83.4 MCH 27.4 MCHC 32.9 RDW 14.8 H Plt Count 311 MPV 9.1 Immature Gran % (Auto) 0.8 H Neut % (Auto) 66.9 Lymph % (Auto) 25.0 [place] % (Auto) 6.0 Eos % (Auto) 0.9 Baso % (Auto) 0.4 Lymph # (Auto) 2.58 [place] # (Auto) 0.6 Eos # (Auto) 0.1 Baso # (Auto) 0.0 Abs Immat Gran (auto) 0.08 H Absolute Neuts (auto) 6.9 H Absolute Nucleated RBC 0.000 Nucleated RBC % 0.0 RPR Non-reactive HIV 1&2 Ab/P24 Ag 4thGn Negative Blood Type B Negative Antibody Screen Positive Antibody Identification Inconclusive Antigen Identification Not Reportable HANNAH, IgG Interpret Negative HANNAH, Poly Interpret Not Performed HANNAH, Complement Interp Negative Discharge Plan Discharge Attending physician on discharge: Shaheen Blunt Discharging Clinician: Shaheen Blunt Patient Disposition: Home, Self-Care Activity: may shower, no straining and pelvic rest Diet: heart healthy Wound Care Instructions: follow printed instructions Patient Instructions: Antibiotic Form Patient Language: Kuwaiti Stand Alone Forms: General Discharge Information Follow-up/Referrals: Shaheen Blunt MD [Physician] - Discharge Medications: Continued fluoxetine 10 mg capsule 30 mg PO DAILY 90 Days Qty: 270 3RF PNV cmb#95-ferrous fumarate-FA [] 28 mg iron- 800 mcg tablet 1 tablet PO DAILY Accrufer 30 mg capsule 60 mg PO HS levothyroxine 75 mcg tablet 75 mcg PO DAILY Qty: 90 3RF Date of admission: 09/29/24 02:21 Primary Care Provider: Po Fink Admitting Provider: Shaheen Blunt Attending physician on admission: Shaheen Blunt Condition: Stable
[2024-09-29] MEDS: OXYTOCIN 30 UNITS/NS 500 ML 30 UNITS/500 ML BAG 125 UNITS IV CONT (07:14)
[2024-09-29] MEDS: IBUPROFEN 600 MG TABLET PO ×2 (13:00→20:20)
--- NOTE | 2024-09-29 13:24 | PC.NURSE ---
Patient transferred to post room #288 via wheelchair. Support person present. Oriented to unit, room, information board, rooming in, admission packet and security measures. Patient verbalizes understanding.
--- NOTE | 2024-09-29 16:30 | PC.NURSE ---
Introductions were made, then consulted with patient to assess needs related to . Discussed with mother her?plans to feed?her and the?experience so far. She declines pain with latch. Resources provided for inpatient and outpatient services with the feeding sheet, mom/baby guide and name written on the communication board. Mother voiced understanding of information and will call if there is a request for assistance. Reported to the Primary RN.
[2024-09-29] MEDS: MULTIVIT/MIN/PREN/FOL AC/IRON TABLET 1 TAB PO (19:39)
[2024-09-30 03:38] VITALS: BP 95/65; PULSE 76; RESP 14; TEMP 37; O2SAT 97
[2024-09-30 05:38] LABS: Hematocrit 29.7 % (37.0-47.0); Hemoglobin 9.1 g/dL (12.0-15.0)
--- NOTE | 2024-09-30 05:53 | P.PNOB_ITS ---
OB - PN: Subj Subjective Date/time seen: 09/30/24 05:53 Patient comments: no complaints and pain well controlled baby status: doing well OB - PN: Obj Data Labs 09/29/24 02:57 Labs: Laboratory Results - last 24 hr 09/29/24 02:57 Antibody Identification Inconclusive Antigen Identification Not Reportable HANNAH, IgG Interpret Negative HANNAH, Poly Interpret Not Performed HANNAH, Complement Interp Negative OB - PN A/P Assessment and Plan (1) , delivered: Code(s): O80 - Encounter for full-term uncomplicated delivery Status: Acute Time Spent With Patient Time: Total time spent is greater than 50% in coordination of care (as documented) at patient's floor/unit and/or counseling patient: Review of Systems 2 Review of Systems: A 10 system review of systems was completed on the patient and is negative except for what is stated in the HPI. Nursing and ancillary documentation was reviewed. Exam 2 Const: General: cooperative, healthy appearing and comfortable O rientation/consciousness: oriented to person, oriented to place and oriented to time HENMT: Head: normal to inspection Resp: Effort & Inspection: normal respiratory effort Cardio: Rate: regular rate Rhythm: regular rhythm Heart sounds: S1 normal heart sound present and S2 normal heart sound present GI: Inspection: normal to inspection
[2024-09-30 08:00] VITALS: PULSE 75; RESP 16; O2SAT 99
[2024-09-30 08:25] VITALS: BP 108/74; PULSE 75; RESP 16; TEMP 36.3; O2SAT 99
--- NOTE | 2024-09-30 09:00 | PC.NURSE ---
Consulted with mother concerning needs and she shared her ability to independently latch infant optimally without pain. Mother is feeding appropriately for growth of and understands stimulating to eat if needed. Infant has had appropriate feedings in the last 24 hours meets the outcomes for weight, output, blood sugar and jaundice at this time. Reinforced understanding of milk production, transition of milk, signs of adequate intake, transition of stool, prevention/relief of engorgement, plugged ducts, mastitis, responsive watching for feeding cues, the different methods of stimulating to breastfeed 1-3 hours after the start of the last feeding, community resources, and when to call a provider using the resource of the feeding sheet along with the mom and baby guide. Mother requested a pump kit so that she could have a manual pump to use on the go, she has an electric double breast pump at home. Instructions given on cleaning, care, usage, that there should be no pain, pumping schedule for milk production, collection, and storage of human milk. Patient was assessed for correct placement, flange size (going to use the size 24), to pump for comfort and nipple stretching/stimulation for adequate milk production. Parents are encouraged to record the pumping schedule on the feeding sheet.?Mother voiced understanding of the education shared along with mom/baby guide and the pump measurement, flange fit handout for additional resource information. Mother also voiced understanding of the information shared, is confident to continue effectively her infant at home, when to call for assistance, denies any additional assistance or education at this time. Reported to the Primary RN.
[2024-09-30] MEDS: RHO(D) IMMUNE GLOBULIN 300 MCG/2 ML SYRINGE IM (09:35)
[2024-09-30] MEDS: IBUPROFEN 600 MG TABLET PO (10:50)
[2024-09-30] MEDS: DOCUSATE SODIUM 100 MG CAPSULE PO (10:51)
[2024-09-30] MEDS: MULTIVIT/MIN/PREN/FOL AC/IRON TABLET 1 TAB PO (10:51)
[2024-09-30] MEDS: POLYSACCHARIDE IRON COMPLEX 150 MG CAPSULE PO (10:51)
--- NOTE | 2024-09-30 12:41 | PC.NURSE ---
Patient was given the opportunity to view the discharge video Mother & Baby Care, The First Two Weeks and to ask questions. Patient declined viewing the video and has been given the mother/baby guide for home reference.
[2024-10-01 08:14] VITALS: BP 103/74; PULSE 87; RESP 16; TEMP 36.6; O2SAT 98
== END 2024-09-30 13:45 | disposition home or self-care (01) | DRG 807 ==
LOC: ANHLDR 06:49 → ANHOB2 11:46
PROVIDERS: Admitting Provider Obstetrics & Gynecology; PCP Internal Medicine; Visit Provider Obstetrics & Gynecology
DX: O99.284 Endocrine, nutritional and metabolic diseases complicating childbirth (principal); Z37.0 Single live birth; Z3A.39 39 weeks gestation of pregnancy; E03.9 Hypothyroidism, unspecified; O66.0 Obstructed labor due to shoulder dystocia; O69.81X0 Labor and delivery complicated by cord around neck, without compression, not applicable or unspecified
CPT/HCPCS: 36415; 85014; 85018; 85025; 85461; 86592; 86703; 86850; 86880; 86900; 86901; 86902; 90384; A9270; G0432; J2371; J2590; J2790; J2795; J7120

== ENCOUNTER 2024-12-23 12:30 | Outpatient (CLI) | payer BC, SELFPAY ==
--- OUTSIDE RECORDS SUMMARY | 2024-12-23 14:02 | XMS_ITS | Data Portability ---
Author Organization [facility] Address [address] [place] [address] [place] [address] Assessment Encounter Date Assessment Date Assessment LastModified by Organization Details LastModified Time 09/05/2022 09/05/2022 Normal exam May resume normal activities contraceptive plan-- declines. FU for WWE 3 mos [email or web address] Not available 09/07/2022 09:37:25 12/31/2022 12/31/2022 healthy female exam patient declines std testing pap due 2024 contraception -declines for now synthroid refilled for 6 mos until pt finds new PCP. OTC Vit D3 5000 IU to start FU 1 year or prn [email or web address] Not available 01/14/2023 09:44:34 Plan of Treatment Reminders Order Date Submit Date Provider Last Modified By Organization Details Last Modified Time Details Appointments None recorded. Lab None recorded. Referral None recorded. Procedures None recorded. Surgeries None recorded. Imaging US, obstetric, limited [address] [facility], [address], [address], [place], [address], 20:10:36 Medication Orders Synthroid 75 mcg tablet [email or web address] [facility], [facility], [place], [address], 09:38:24 Patient TargetsNo targets recorded. Patient InstructionsNo [...] t Abnor mal: No Resul ting Lab: [facility] [address] [facility] [address] Tel: [phone] CULTU RE ----- ----- ----- --- No Group B strep isola luis enrique at 2 days (kali ctive broth enhan cemen t) Not Available [facility] Infectious Disease [address] [place] [address], [address], 07/02/2022 14:33:15 07/04/20 22 07/04/2022 TSH, REFLE X FREE T4 TSH 0.64 uIU/m L 0.30-5 .33 Not Available [facility] (Lab) [address] [place], [address], 07/05/2022 05:31:26 09/05/19 23 09/05/2022 TSH, REFLE X FREE T4 TSH 0.62 uIU/m L 0.30-5 .33 Not Available [facility] (Lab) [address] [place], [address], 09/06/2022 07:35:46 12/19/1912/18/2022 TSH, REFLE X FREE T4 TSH 2.08 uIU/m L 0.30-5 .33 Not Available [facility] (Lab) [address] [place], [address], 12/19/2022 04:02:50 12/19/19 23 12/18/2022 VITAM IN D, 25-OH (TOTA L D2/D3 ) vitamin D, 25-hydroxy, total 26.9 NG/mL 30.0-1 00.0 low Sugge stive of Defic iency : <20 ng/mL Sugge stive of Insuf ficie ncy: 20-29 ng/mL Sugge stive of Suffi cienc y: 30-10 0 ng/mL Sugge stive of Toxic ity: >150 ng/mL Not Available [facility] (Lab) [address], [place], [address], 12/19/2022 04:02:51 06/29/20 22 06/29/2022 imagi ng/di agnos tic resul t No observ ation record ed. TASHIA Grover [address], [place], [address], 07/17/2022 12:06:26 06/29/20 22 06/29/2022 US, obste tric, follo w-up No observ ation record ed. [email or web address] [facility] [address], [place], [address], 06/29/2022 13:41:36 07/16/20 22 07/16/2022 non-s tress test No observ ation record ed. [email or web address] [facility] [address], [place], [address], 01/10/2023 14:07:56 07/17/20 22 07/17/2022 US, obste tric, limit ed No observ ation record ed. [email or web address] [facility] [address], [place], [address], 07/17/2022 17:19:51 07/17/20 22 07/17/2022 US, obste tric, limit ed No observ ation record ed. TASHIA Grover [address], [place], [address], 07/29/2022 10:12:06 Result Notes None recorded. Problems Name Problem SNOMED Code Status Onset Date Resolution Date Notes Provider Name and Address Organization Details Recorded Time Pregnanc y 97713728 Completed 202111/08/2022 Jennifer Bohnensti ehl null, [facility] 3 11:30:46 Hypothyr oidism 28377654 Completed repeat 34-36w Jennifer Bohnensti ehl null, [facility] 3 11:30:38 RhD negative 070486332 Completed Rhogam received 05/16/22 Jennifer Bohnensti ehl null, [facility] 3 11:30:38 Hypothyr oidism 99662934 Active repeat 34-36w Jennifer Bohnensti ehl null, [facility] 3 11:30:38 RhD negative 129000777 Active Rhogam received 05/16/22 Jennifer Bohnensti ehl null, [facility] 3 11:30:38 Problem Notes None recorded. Procedures Surgical History Date Name Laterality Status Provider Name and Address Organization Details Recorded Time 12/15/2021 Date of Last Pap Smear completed [facility] 04/10/2022 12:13:25 tonsilectom y/adenoids completed [facility] 04/10/2022 10:20:38 Imaging Results Imaging Date Name Status LastModified by Organiz ation Details LastModified Time 06/29/2022 imaging/diag nostic result completed TASHIA Grover [address], [place], [address], 07/17/2022 12:06:26 06/29/2022 US, obstetric, follow-up completed [email or web address], [place], [address], 06/29/2022 13:41:36 07/16/2022 non-stress test [email or web address] [address], [place], [address], 01/10/2023 14:07:56 07/17/2022 US, obstetric, limited completed [email or web address] [facility] [address], [place], [address], 07/17/2022 17:19:51 07/17/2022 US, obstetric, limited completed TASHIA Lenore [address], [place], [address], 07/29/2022 10:12:06 Procedure Notes None recorded. Medical [...] Updated DateTime 07/20/2022 152.4 cm 31.1 kg/m2 33669.18 683 g 116 mm[Hg] 80 mm[Hg] Lucrecia Marley [facility] 2 10:25:51 Date Recorded Body height Body mass index (BMI) Body weight Systolic blood pressure Diastolic blood pressure Provider Name and Address Organization Details Last Updated DateTime 07/25/2022 152.4 cm 30.5 kg/m2 61715.40 972 g 120 mm[Hg] 82 mm[Hg] [facility] 2 10:37:16 Date Recorded Body height Body mass index (BMI) Systolic blood pressure Diastolic blood pressure Provider Name and Address Organization Details Last Updated DateTime 09/05/2022 152.4 cm 27 kg/m2 117 mm[Hg] 65 mm[Hg] [facility] 09/05/2022 16:09:54 Date Recorded Body weight Provider Name an d Address Organization Details Last Updated DateTime 09/05/2022 12690.70880 g Jennifer Zhang [facility] 11/08/2022 11:30:43 Date Recorded Body height Body mass index (BMI) Body weight Systolic blood pressure Diastolic blood pressure Provider Name and Address Organization Details Last Updated DateTime 12/31/2022 152.4 cm 27.5 kg/m2 60121.52 g 112 mm[Hg] 68 mm[Hg] [facility] 3 17:09:25 Social History Question Answer Notes LastModified by Organizat ion Details LastModified Time Tobacco Smoking Status Never Smoker [facility] 04/10/2022 10:21:14 What Is Your Level [...] available 2021 12:13:39 Medical History Condition Response Allergies (Food, seasonal, environmental ) N Other N Breast Cancer N Drug/Latex Allergies/Reactions N Blood Transfusion N Dermatologic Disorders N Lung Disease N Defects or Inherited Disease N Breast Problem N Gestational Diabetes N Hematologic disorders N Anesthesia Complications N History of STI N Deep Vein Thrombosis N Polycystic ovary syndrome N Anxiety Disorder N Autoimmune disease N Arthritis N Infertility N Polyps N Acid Reflux (GERD) N History of abnormal pap N Cancer N Stroke N Varicosities N Neurologic/Epilepsy N Endometriosis N High Cholesterol N Headaches N Fibromyalgia N Kidney Disease N Heart Problems N Kidney or Bladder Problems N Thyroid Problems Y GI Problems N Eating Disorder N Anemia N Art (IVF or FET) N Psychiatric Illness N Ovarian Cancer N Diabetes N Pulmonary (TB, Asthma) N Hepatitis/Liver Disease N No Past Medical History N Eczema N Urinary Tract Infection N Abuse/Domestic Violence N Asthma N Trauma/Violence N Depression/ depression N Heart Disease N Pre-Eclampsia N Hypertension N Osteoporosis N Thrombophilias N Gynecological History Statement/Question Response Age of [...] SNOMED-CT Code Diagnosis ICD10 Code Diagnosis Note [id number] Jerrica Sanchez [facility] [address] [address] 04/10/2022 10:13:20 04/10/2022 12:24:51 screening 534378140 Z36.3 [id number] Triny Choi MD [facility] [address] [address] 04/10/2022 10:14:14 04/11/2022 18:45:39 Routine care 480492496 Z34.92 Hypothyroidism 29762699 E03.9 RhD negative 146424522 Z 01.83 [id number] Jerrica Sanchez [facility] [address],[place] [address] 05/02/2022 09:40:43 05/02/2022 11:14:38 screening 856761891 Z36.2 Z3A.27 [id number] MD Nathan Howell [address],[place] [address] 05/02/2022 09:41:39 05/02/2022 14:08:03 Routine care 115330962 Z34.92 [id number] MD Nathan Howell [address],[place] [address] 05/15/2022 09:17:45 05/15/2022 10:04:41 Routine care 912403811 Z34.92 RhD negative 336493198 Z 01.83 [id number] MD Nathan Howell [address],[place] [address] 05/30/2022 09:35:45 05/30/2022 10:27:02 Routine care 484314681 Z34.92 [id number] Triny Choi MD [facility] [address],[place] [address] 06/11/2022 09:48:31 06/11/2022 14:32:16 Routine care 178010038 Z34.92 [id number] [facility] [address],[place] [address] 06/11/2022 11:22:06 06/11/2022 12:03:22 Reduced movement 999624854 O36.8199 [id number] Jerrica Sanchez [facility] [address],[place] [address] 06/29/2022 11:07:08 06/29/2022 13:37:02 Pre-existing maternal disease complicating 2355785663 6106 O99.891 Z3A.36 [id number] MD Stacie [place] [address],[place] [address] 06/29/2022 11:07:49 06/29/2022 13:15:28 Routine care 656530859 Z34.92 Hypothyroidism 62678793 E03.9 [id number] Triny Choi MD [facility] [address],[place] [address] 07/04/2022 12:05:01 07/04/2022 14:25:33 Routine care 449588325 Z34.92 Hypothyroidism 24940877 E03.9 [id number] Triny Choi MD [facility] [address],[place] [address] 07/11/2022 10:00:03 07/11/2022 10:43:48 Routine care 019485599 Z34.92 [id number] Jyotisoraya Jones [facility] [address],[place] [address] 07/17/2022 16:14:25 07/17/2022 17:52:05 Reduced movement 204362861 O36.8130 Z3A.38 [id number] Triny Choi MD [facility] [address],[place] [address] 07/20/2022 10:03:25 07/20/2022 11:28:40 Routine care 000106250 Z34.92 [id number] Triny Choi MD [facility] [address],[place] [address] 07/25/2022 10:29:15 07/25/2022 10:51:16 Routine care 497924232 Z34.92 [id number] Triny Choi MD [facility] [address],[place] [address] 09/05/2022 15:45:40 09/07/2022 14:36:33 care 544710447 Z39.2 [id number] Triny Choi MD [facility] [address] [place] [address] 12/31/2022 16:45:41 01/01/2023 18:10:59 Gynecologic examination 79821197 Z01.419 Hypothyroidism 73878724 E03.9 Health Concerns Section Related Observation LastModified by Organization Detai ls LastModified Time None Recorded Concern Status LastModified by Organization Details LastModified Time None Recorded Advance Directives Directive None Recorded Payers Encounter Date Sequence Insurance Name Policy Number Policy Eric Covered Member ID Eric Member ID Guarantor Name 07/17/2022 1 [place] [id number] Keron R Stanley [id number] Minal Nickel 07/20/2022 1 [place] [id number] Keron R Stanley [id number] Minal Nickel 07/25/2022 1 [place] [id number] Keron R Stanley [id number] Minal Nickel 09/05/2022 1 [place] [id number] Keron R Stanley [id number] Minal Nickel 12/31/2022 1 [place] [id number] Keron R Stanley [id number] Minal Nickel Notes Date Note Type Note Provider Name and Address Organization Details Recorded Time 09/05/2022 text/html Patient is a 27yo presenting for a 4 week visit. She had a on 07/30 at 40 weeks GA. Baby Sienna was 8-10, doing great. Doing well overall. . Normal lochia. Pain- none. Bowel and bladder function normal. [place] score 0 Period-no Annual due: now Concerns: none Triny Choi MD [address], [place], [address], [facility] 09/07/2022 09:37:51 12/31/2022 text/html Patient is a 27yo who presents for an annual exam. , not desiring BC. Recent TSH was wnl and Vit D was 26.8. last pap-12/2021 sexually active-y contraception-no ne seatbelts-y exercise-y depression-denie s domestic violence-denies tobacco-n concerns- Triny Choi MD [address], [place], [address], [facility] 01/14/2023 09:44:55 OBGyn Episode Ob Episode Information Episode Created Date Number of Fetuses Patient Bloodtype Patient rh Status Prepregnancy Weight lbs Domestic Partner Domestic Partner Phone Father Name Imaging System Administrator Status 04/10/20 22 1 CLOSED Fetus Data First Name Last Name Admitted to NICU Weight (g) Sex Living Outcome Pediatric Complications Fetus ID Race Codes Race Delivery Type 3713.55 7704 F Full Term [id number] Vaginal Delivery Kurt Calculation Initial Kurt Date [...] Domestic Partner Domestic Partner Phone Father Name Imaging System Administrator Status 04/10/20 22 1 CLOSED Fetus Data First Name Last Name Admitted to NICU Weight (g) Sex Living Outcome Pediatric Complications Fetus ID Race Codes Race Delivery Type Sienna 3912.23 1 F true Full Term [id number] Vaginal Delivery Problems Problem Notes Choi pt Problem Name Start Date End Date Resolution Snomed Code Not e Hypothyroidism 11679253 repea t 34-36w RhD negative 534693686 Rhogam received 05/16/22 Kurt Calculation Initial Kurt [...] Date Ultra Sound Latest Days Gestation 0 [email or web address] 04/11/2022 07/26/20 22 0 Pre- Flowsheet Flowsheet Date 04/10/2022 Torre Score Blood Edema Fundus Height Fundus Units Glucose Ketones Leukocytes Nitrite Labor Signs Protein Cervic Dilation Cervic Effacement Cervic Station neg none none trace Type Weight in lbs Pre/Post Dialysis Refused Weight 149.198733680574 BP Diastolic BP Location Tested BP Systolic BP Type 59 96 Fetus Heart Rate Present A 145 Fetus Movement A Yes Comments Minal is a 24o at 24.5 who presents as a transfer of care from [place]. She has hypothyroidism and has not had [...] Weight in lbs Pre/Post Dialysis Refused Weight 152.077520144726 BP Diastolic BP Location Tested BP Systolic [...] Weight in lbs Pre/Post Dialysis Refused Weight 155.32440708446 BP Diastolic BP Location Tested BP Systolic [...] Weight in lbs Pre/Post Dialysis Refused Weight 158.181602612668 BP Diastolic BP Location Tested BP Systolic [...] Weight in lbs Pre/Post Dialysis Refused Weight 155.43395236567 BP Diastolic BP Location Tested BP Systolic [...] Weight in lbs Pre/Post Dialysis Refused Weight 157.228631852285 BP Diastolic BP Location Tested BP Systolic [...] Weight in lbs Pre/Post Dialysis Refused Weight 157.454804888200 BP Diastolic BP Location Tested BP Systolic [...] Weight in lbs Pre/Post Dialysis Refused Weight 158.626012075317 BP Diastolic BP Location Tested BP Systolic [...] Weight in lbs Pre/Post Dialysis Refused Weight 159.381895879100 BP Diastolic BP Location Tested BP Systolic [...] Weight in lbs Pre/Post Dialysis Refused Weight 156.205441975913 BP Diastolic BP Location Tested BP Systolic [...] Weight in lbs Pre/Post Dialysis Refused Weight 138.539124202890 BP Diastolic BP Location Tested BP Systolic [...] Estim ated Date of Delivery false Thalassemia (Swedish, Russian, Mediterranean, Or Background): MCV < 80 false Neural Tube Defect (Meningomyelocele, Spina Bifi da, Or Anencephaly) false Congenital Heart Defect false Down Syndrome false Geovanni-Sachs (eg, Caodaism, Cajun, Uzbek-Sebastian) f alse Scotty Disease false Sickle Cell Disease Or Trait () false Hemophilia Or Other Blood Disorders false Muscular Dystrophy false Cystic Fibrosis false Sanders's Chorea false Intellectual Disability/Autism false If Yes, [...]
--- OUTSIDE RECORDS SUMMARY | 2024-12-23 14:02 | XMS_ITS | Clinical Summary ---
Author Organization [facility] Address [facility] [place] [address] Care Team Providers Care Zinc Skimmer Name Role Phone None, Provider MD Primary Care Provider Unavaila ble Allergies Active Allergy Reactions Criticality Noted Date Comments Hydrocodone Rash Low 12/02/2016 Medications butalbital-acetami nophen-caffeine 50-300-40 MG capsule 12/03/2021 Active Ybolwqty-Vxr-Pa-FA ( VITAMINS OR) Active Active Problems Problem Noted Date Diagnosed Date Blood type B- 12/16/2021 17 weeks gestation of ([facility]) 2021 Hypothyroidism affecting pre gnancy in first trimester ([facility]) 12/15/2021 Migraine 12/15/2021 Immunizations Immunization Administration Dates Next Due Dtap (Acel-Immune) 12/25/2001, 9,1997,08/02,1997 Hepatitis A (Havrix [address]) 02/04/2012 Hepatitis B Pediatric 1997,1997,04/02 Hib (Generic) 10/24/1998, 8,1997,06/03 Influenza (Generic) 06/07/2018, 7,06/11/2016,06/03 MENINGOCOCCAL A C Y&W-135 oligosaccharide (MENVEO) [...] 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 Not [...] Done Comments Annual Physical 2000 COVID-19 Vaccine ( season) 2024 Cervical Cancer Screening Pap Smear (Age 21 to 29) Every 3 Years 12/15/2024 12/15/2021 Cervical Cancer Screening 12/15/2024 DTaP, Tdap and Td Vaccines (8 - Td or Tdap) 07/10/2026 07/10/2016, 03/14/2011, 12/25/2001, Additional history exists Hepatitis B Vaccines Completed 1997, 1997, 1997 Pneumococcal Vaccine: Pediatrics (0 to 5 Years) and At-Risk Patients (6 to 49 Years) Completed 04/16/2000 Meningococcal Vaccine Aged Out [...] 4:07 PM CDT 8 weeks gestation of ([facility]) CHLAMYDIA GC RNA Routine 12/15/2021 3:47 PM CDT 8 weeks gestation of ([facility]) CYTOPATH CERV/VAG THIN LAYER Routine 12/15/2021 9:58 AM CDT 8 weeks gestation of ([facility]) from Last 3 Months or Most Recently Relevant to Health Maintenance Results * HEPATITIS C ANTIBODY (12/15/2021 4:07 PM CDT) HEPATITIS C AB NON-REACTI VE NON-REACT KING 12/15/2021 6:26 PM CDT [facility] Comment: ANTIBODIES TO HCV NOT DETECTED. DOES NOT EXCLUDE THE POSSIBILITY OF EXPOSURE TO HCV. 12/15/2021 4:07 PM CDT us Ghulam Godfrey MD LABORATORY Final Result Performing Organization Address [facility] Co de Phone Number [facility] [address] [place] [address], * CHLAMYDIA GC RNA (12/15/2021 3:47 PM CDT) SPEC DESCRIPTION URINE 12/16/19 22 5:27 PM CDT [facility] CHLAMYDIA RNA TMA NEGATIVE NEGATIVE 022 1:38 PM CDT [facility] Comment:PERFORMED BY NUCLEIC ACID AMPLIFICATION N.GONORRHOEAE RNA TMA NEGATIVE NEGATIVE 12/18/2021 1:38 PM CDT [facility] Comment:PERFORMED BY NUCLEIC ACID AMPLIFICATION URINE SPECIMEN / Unknown 12/15/2021 3:47 PM CDT us Ghulam Godfrey MD MICROBIOLOGY - GENERAL ORDERABLE S Final Result Performing Organization Address [facility] Co de Phone Number [facility] [address] [place] [address], * Cytopath Cerv/Vag Thin Layer (12/15/2021 9:58 AM CDT) THIN PREP PAP [facility] [address] [place] [address] Department of Pathology Pathology Report CERVICAL/VAGINAL PAP SMEAR REPORT Name: CHE ANGEL Age: 8 1995 (Age: 26) [place] [facility] [place]: F Collected Date: 12/15/2021 [facility] #: [id number] Date Received: 12/18/2021 Date Reported: 12/18/2021 Provider: GHULAM GODFREY MD INTERPRETATION CERVICAL/ENDOCERVI LOC: SATISFACTORY FOR EVALUATION. ENDOCERVICAL/TRANS FORMATION ZONE COMPONENT PRESENT. NEGATIVE FOR INTRAEPITHELIAL LESION OR MALIGNANCY. Electronically Signed Out By DIVINE Almanza (ASCP) CLINICAL HISTORY Z3A.08 SCREENING PAP TEST ThinPrep Pap Test with HR HPV testing in patient > 21 years with ASC-US diagnosis. Date of Last Menstrual Period: 10/19/21 Menstrual Status: SPECIMEN SUBMITTED CERVICAL/ENDOCERVI LOC Specimen Received:1 Thin Prep Vial, Image Assisted Pap (SMD) Please note: The Pap smear is not a diagnostic test. It is a screening test. Negative results on combined screening (Pap test and HPV-DNA) have a high negative predictive value (99.1-100 percent) for cervical cancer. The pap test is not effective in detecting cervical adenocarcinoma. [facility] 12/15/2021 9:58 AM CDT 12/18/2021 9:58 AM CDT Comment:CERVICAL/ENDOCERVICA L Ghulam Godfrey MD PATHOLOGY/CYTOLOGY ORDERABLES Fi nal Result [facility] [address] [place] [address], from Last 3 Months or Most Recently Relevant to Health Maintenance Insurance Care Teams Zinc Skimmer Relationship Specialty Start Date End Date None, Provider, PCP - General 12/15/21
--- OUTSIDE RECORDS SUMMARY | 2024-12-23 14:02 | XMS_ITS | Encounter Summary ---
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
[2024-12-23 21:41] LABS: Hemoglobin A1C 4.9 % (<5.7)
== END 2024-12-23 12:31 | disposition home or self-care (01) ==
LOC: ANHGOSHLAB 12:31
PROVIDERS: PCP Internal Medicine; Visit Provider Nurse Practitioner
DX: E03.9 Hypothyroidism, unspecified (principal); Z83.3 Family history of diabetes mellitus
CPT/HCPCS: 36415; 83036; 84443

== ENCOUNTER 2024-12-31 09:15 | Outpatient (CLI) | payer BC, SELFPAY ==
--- NOTE | ~2024-12-31 | US_ITS ---
Limited Abdominal Sonogram: Real-time sonographic imaging of the right upper quadrant was performed. Clinical History: Abdominal pain Findings: The liver appears normal with no evidence of mass lesion or bile duct dilatation. Main por nicole vein demonstrates normal direction of flow. The gallbladder is well distended, and appears normal with no evidence of gallstone or wall thickening. The common bile duct measures 2 mm. The visualize d pancreas, aorta, and IVC are unremarkable. Impression: No significant abnormality seen. Reviewed, dictated and finalized at location . Impression: No significant abnormality seen.
== END 2024-12-31 09:16 | disposition home or self-care (01) ==
PROVIDERS: PCP Nurse Practitioner; Visit Provider Nurse Practitioner
DX: R10.11 Right upper quadrant pain (principal); R10.13 Epigastric pain
CPT/HCPCS: 76705

== ENCOUNTER 2025-01-07 15:16 | Outpatient (CLI) | payer BC, SELFPAY ==
--- NOTE | ~2025-01-07 | CT_ITS ---
CT of the Abdomen and Pelvis: Indication: Abdominal pain Technique: 2.5 mm axial scans were obtained through the abdomen and pelvis following intravenous adm inistration of 100 cc of Omnipaque 350. Dose reduction technique was used on this scan by utilizing a utomated exposure control and iterative reconstruction technique. The dose-length product (DLP) was 2 32.94 mGy-cm. Findings: Scans through the lung bases are unremarkable. The liver, spleen, pancreas, gallbladder, adrenals and kidneys are within normal limits. No evidence of aortic aneurysm. No lymphadenopathy. No bowel obstruction or bowel wall thickening. There is no evidence to suggest acute appendicitis. Images through the pelvis were performed. Urinary bladder unremarkable. No definite pelvic mass seen. No ascites. Impression: No significant abnormalities seen. Reviewed, dictated and finalized at [facility]. Impression: No significant abnormalities seen.
--- OUTSIDE RECORDS SUMMARY | 2025-01-07 15:19 | XMS_ITS | Clinical Summary ---
Author Organization [facility] Address Critical access hospital[address] [place] [address] Care Team Providers Care Commercial Loan Reviewer Name Role Phone None, Provider MD Primary Care Provider Unavaila ble Allergies Active Allergy Reactions Criticality Noted Date Comments Hydrocodone Rash Low 12/02/2016 Medications butalbital-acetami nophen-caffeine 50-300-40 MG capsule 12/03/2021 Active Xaajedfn-Gey-Uz-FA ( VITAMINS OR) Active Active Problems Problem Noted Date Diagnosed Date Blood type B- 12/16/2021 17 weeks gestation of ([facility]) 2021 Hypothyroidism affecting pre gnancy in first trimester ([facility]) 12/15/2021 Migraine 12/15/2021 Immunizations Immunization Administration Dates [...] 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 Not [...] gestation of ([facility]) CHLAMYDIA GC RNA Routine 12/15/2021 3:47 PM CDT 8 weeks gestation of ([facility]) CYTOPATH CERV/VAG THIN LAYER Routine 12/15/2021 9:58 AM CDT 8 weeks gestation of ([facility]) from Last 3 Months or Most Recently Relevant to Health Maintenance Results * HEPATITIS C ANTIBODY (12/15/2021 4:07 PM CDT) HEPATITIS C AB NON-REACTI VE NON-REACT KING 12/15/2021 6:26 PM CDT [facility] Comment: ANTIBODIES TO HCV NOT DETECTED. DOES NOT EXCLUDE THE POSSIBILITY OF EXPOSURE TO HCV. 12/15/2021 4:07 PM CDT us Ghulam Godfrey MD LABORATORY Final Result Performing Organization Address [facility] Co de Phone Number [facility] [address] [place] [address], * CHLAMYDIA GC RNA (12/15/2021 3:47 PM CDT) SPEC DESCRIPTION URINE 12/16/19 22 5:27 PM CDT [facility] CHLAMYDIA RNA TMA NEGATIVE NEGATIVE 022 1:38 PM CDT [facility] Comment:PERFORMED BY NUCLEIC ACID AMPLIFICATION N.GONORRHOEAE RNA TMA NEGATIVE NEGATIVE 12/18/2021 1:38 PM CDT [facility] Comment:PERFORMED BY NUCLEIC ACID AMPLIFICATION URINE SPECIMEN / Unknown 12/15/2021 3:47 PM CDT us Ghulam Godfrey MD MICROBIOLOGY - GENERAL ORDERABLE S Final Result Performing Organization Address [facility] Co de Phone Number [facility] [address] [place] [address], * Cytopath Cerv/Vag Thin Layer (12/15/2021 9:58 AM CDT) THIN PREP PAP [facility] [address] [place] [address] Department of Pathology Pathology Report CERVICAL/VAGINAL PAP SMEAR REPORT Name: CHE ANGEL Age: 8 1995 (Age: 26) Location: [facility] Sex: F Collected Date: 12/15/2021 [facility] #: [id number] Date Received: 12/18/2021 Date Reported: 12/18/2021 Provider: [...] is not effective in detecting cervical adenocarcinoma. [facility] 12/15/2021 9:58 AM CDT 12/18/2021 9:58 AM CDT Comment:CERVICAL/ENDOCERVICA L Ghulam Godfrey MD PATHOLOGY/CYTOLOGY ORDERABLES Fi nal Result [facility] [address] [place] [address], from Last 3 Months or Most Recently Relevant to Health Maintenance Insurance Care Teams Commercial Loan Reviewer Relationship Specialty Start Date End Date None, Provider, PCP - General 12/15/21
--- OUTSIDE RECORDS SUMMARY | 2025-01-07 15:19 | XMS_ITS | Encounter Summary ---
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
--- OUTSIDE RECORDS SUMMARY | 2025-01-07 15:20 | XMS_ITS | Data Portability ---
Author Organization [facility] Address [address] [place] [address] Assessment Encounter Date Assessment Date Assessment LastModified by Organization Details LastModified Time 09/05/2022 09/05/2022 Normal exam May resume normal activities contraceptive plan-- declines. FU for WWE 3 mos [email or web address] Not available 09/07/2022 09:37:25 12/31/2022 12/31/2022 healthy female exam patient declines std testing pap due 2024 contraception -declines for now synthroid refilled for 6 mos until pt finds new PCP. OTC Vit D3 5000 IU to start FU 1 year or prn [email or web address] Not available 01/14/2023 09:44:34 Plan of Treatment Reminders Order Date Submit Date Provider Last Modified By Organization Details Last Modified Time Details Appointments None recorded. Lab None recorded. Referral None recorded. Procedures None recorded. Surgeries None recorded. Imaging US, obstetric, limited 2021 022 [facility], [address], [address], [place], [address], 20:10:36 Medication Orders Synthroid 75 mcg tablet [email or web address] [facility], [facility], [place], [address], 09:38:24 Patient TargetsNo targets recorded. Patient InstructionsNo [...] t Abnor mal: No Resul ting Lab: [facility] [address] [facility] [place] [address] Tel: [phone] CULTU RE ----- ----- ----- --- No Group B strep isola luis enrique at 2 days (kali ctive broth enhan cemen t) Not Available [facility] Infectious Disease [address] [place] [address], [address], 07/02/2022 14:33:15 07/04/20 22 07/04/2022 TSH, REFLE X FREE T4 TSH 0.64 uIU/m L 0.30-5 .33 Not Available [facility] (Lab) [address] [place], [address], 07/05/2022 05:31:26 09/05/19 23 09/05/2022 TSH, REFLE X FREE T4 TSH 0.62 uIU/m L 0.30-5 .33 Not Available [facility] (Lab) [address] [place], [address], 09/06/2022 07:35:46 12/19/1912/18/2022 TSH, REFLE X FREE T4 TSH 2.08 uIU/m L 0.30-5 .33 Not Available [facility] (Lab) [address] [place], [address], 12/19/2022 04:02:50 12/19/19 23 12/18/2022 VITAM IN D, 25-OH (TOTA L D2/D3 ) vitamin D, 25-hydroxy, total 26.9 NG/mL 30.0-1 00.0 low Sugge stive of Defic iency : <20 ng/mL Sugge stive of Insuf ficie ncy: 20-29 ng/mL Sugge stive of Suffi cienc y: 30-10 0 ng/mL Sugge stive of Toxic ity: >150 ng/mL Not Available [facility] (Lab) [address], [place], [address], 12/19/2022 04:02:51 06/29/20 22 06/29/2022 imagi ng/di agnos tic resul t No observ ation record ed. TASHIA [facility] [address], [place], [address], 07/17/2022 12:06:26 06/29/20 22 06/29/2022 US, obste tric, follo w-up No observ ation record ed. [email or web address] [facility] [address], [place], [address], 06/29/2022 13:41:36 07/16/20 22 07/16/2022 non-s tress test No observ ation record ed. [email or web address] [facility] [address], [place], [address], 01/10/2023 14:07:56 07/17/20 22 07/17/2022 US, obste tric, limit ed No observ ation record ed. [email or web address] [facility] [address], [place], [address], 07/17/2022 17:19:51 07/17/20 22 07/17/2022 US, obste tric, limit ed No observ ation record ed. TASHIA [address]ver [address], [place], [address], 07/29/2022 10:12:06 Result Notes None recorded. Problems Name Problem SNOMED Code Status Onset Date Resolution Date Notes Provider Name and Address Organization Details Recorded Time Pregnanc y 22356461 Completed 202111/08/2022 Jennifer Bohnensti ehl null, [facility] 3 11:30:46 Hypothyr oidism 64104285 Completed repeat 34-36w Jennifer Bohnensti ehl null, [facility] 3 11:30:38 RhD negative 778782590 Completed Rhogam received 05/16/22 Jennifer Bohnensti ehl null, [facility] 3 11:30:38 Hypothyr oidism 10098195 Active repeat 34-36w Jennifer Bohnensti ehl null, [facility] 3 11:30:38 RhD negative 800171814 Active Rhogam received 05/16/22 Jennifer Bohnensti ehl null, [facility] 3 11:30:38 Problem Notes None recorded. Procedures Surgical History Date Name Laterality Status Provider Name and Address Organization Details Recorded Time 12/15/2021 Date of Last Pap Smear completed [facility] 04/10/2022 12:13:25 tonsilectom y/adenoids completed [facility] 04/10/2022 10:20:38 Imaging Results Imaging Date Name Status LastModified by Organiz ation Details LastModified Time 06/29/2022 imaging/diag nostic result completed TASHIA Grover [address], [place], [address], 07/17/2022 12:06:26 06/29/2022 US, obstetric, follow-up completed [email or web address], [place], [address], 06/29/2022 13:41:36 07/16/2022 [email or web address] [address], [place], [address], 01/10/2023 14:07:56 07/17/2022 US, obstetric, limited completed [email or web address] [facility] [address], [place], [address], 07/17/2022 17:19:51 07/17/2022 US, obstetric, limited completed TASHIA Lenore [address], [place], [address], 07/29/2022 10:12:06 Procedure Notes None recorded. Medical [...] Updated DateTime 07/20/2022 152.4 cm 31.1 kg/m2 48299.18 683 g 116 mm[Hg] 80 mm[Hg] Lucrecia Marley [facility] 10:25:51 Date Recorded Body height Body mass index (BMI) Body weight Systolic blood pressure Diastolic blood pressure Provider Name and Address Organization Details Last Updated DateTime 07/25/2022 152.4 cm 30.5 kg/m2 34403.40 972 g 120 mm[Hg] 82 mm[Hg] [facility] 2 10:37:16 Date Recorded Body height Body mass index (BMI) Systolic blood pressure Diastolic blood pressure Provider Name and Address Organization Details Last Updated DateTime 09/05/2022 152.4 cm 27 kg/m2 117 mm[Hg] 65 mm[Hg] [facility] 09/05/2022 16:09:54 Date Recorded Body weight Provider Name an d Address Organization Details Last Updated DateTime 09/05/2022 57223.01656 g Jennifer Zhang [facility] 11/08/2022 11:30:43 Date Recorded Body height Body mass index (BMI) Body weight Systolic blood pressure Diastolic blood pressure Provider Name and Address Organization Details Last Updated DateTime 12/31/2022 152.4 cm 27.5 kg/m2 53841.52 g 112 mm[Hg] 68 mm[Hg] [facility] 3 17:09:25 Social History Question Answer Notes LastModified by Organizat ion Details LastModified Time Tobacco Smoking Status Never Smoker [facility] 04/10/2022 10:21:14 What Is Your Level [...] SNOMED-CT Code Diagnosis ICD10 Code Diagnosis Note [id number] Triny Choi MD [facility] [address] [address] 04/10/2022 10:13:20 04/10/2022 12:24:51 screening 001860495 Z36.3 [id number] MD Nathan [facility] [address] [address] 04/10/2022 10:14:14 04/11/2022 18:45:39 Routine care 382540082 Z34.92 Hypothyroidism 00393813 E03.9 RhD negative 843074078 Z 01.83 [id number] MD Nathan [facility] [address] [address] 05/02/2022 09:40:43 05/02/2022 11:14:38 screening 765856555 Z36.2 Z3A.27 [id number] MD Nathan [facility] [address] [address] 05/02/2022 09:41:39 05/02/2022 14:08:03 Routine care 387925559 Z34.92 [id number] MD Nathan Howell [address] [address] 05/15/2022 09:17:45 05/15/2022 10:04:41 Routine care 338566701 Z34.92 RhD negative 379476799 Z 01.83 [id number] MD Nathan Howell [address] [address] 05/30/2022 09:35:45 05/30/2022 10:27:02 Routine care 278324186 Z34.92 [id number] MD Nathan Howell [address] [address] 06/11/2022 09:48:31 06/11/2022 14:32:16 Routine care 205511775 Z34.92 [id number] MD Nathan [facility]ell [address] [address] 06/11/2022 11:22:06 06/11/2022 12:03:22 Reduced movement 756385059 O36.8199 [id number] MD Nathan [facility] [address] [place] [address] 06/29/2022 11:07:08 06/29/2022 13:37:02 Pre-existing maternal disease complicating 8037291910 6106 O99.891 Z3A.36 [id number] MD Nathan [facility] [address] [address] 06/29/2022 11:07:49 06/29/2022 13:15:28 Routine care 669172339 Z34.92 Hypothyroidism 03759069 E03.9 [id number] MD Nathan [facility]ell [address] [address] 07/04/2022 12:05:01 07/04/2022 14:25:33 Routine care 707896260 Z34.92 Hypothyroidism 79426638 E03.9 [id number] MD Nathan [facility] [address] [address] 07/11/2022 10:00:03 07/11/2022 10:43:48 Routine care 524938615 Z34.92 [id number] MD Nathan [facility] [address] [address] 07/17/2022 16:14:25 07/17/2022 17:52:05 Reduced movement 895448441 O36.8130 Z3A.38 [id number] Triny Choi MD [facility] [address] [address] 07/20/2022 10:03:25 07/20/2022 11:28:40 Routine care 839663869 Z34.92 [id number] Triny Choi MD [facility] [address] [address] 07/25/2022 10:29:15 07/25/2022 10:51:16 Routine care 449297306 Z34.92 [id number] MD Nathan [facility] [address] [address] 09/05/2022 15:45:40 09/07/2022 14:36:33 care 361137123 Z39.2 [id number] MD Stacie [place] [address] [address] 12/31/2022 16:45:41 01/01/2023 18:10:59 Gynecologic examination 39349964 Z01.419 Hypothyroidism 17783407 E03.9 Health Concerns Section Related Observation LastModified by Organization Detai ls LastModified Time None Recorded Concern Status LastModified by Organization Details LastModified Time None Recorded Advance Directives Directive None Recorded Payers Encounter Date Sequence Insurance Name Policy Number Policy Eric Covered Member ID Eric Member ID Guarantor Name 07/17/2022 1 [place] [id number] Keron R Stanley [id number] Minal Nickel 07/20/2022 1 [place] [id number] Keron R Stanley [id number] Minal Nickel 07/25/2022 1 [place] [id number] Keron R Stanley [id number] Minal Nickel 09/05/2022 1 [place] [id number] Keron R Stanley [id number] Minal Nickel 12/31/2022 1 [place] [id number] Keron R Stanley [id number] Minal Nickel Notes Date Note Type Note Provider Name and Address Organization Details Recorded Time 09/05/2022 text/html Patient is a 27yo presenting for a 4 week visit. She had a on 07/30 at 40 weeks GA. Baby Sienna was 8-10, doing great. Doing well overall. . Normal lochia. Pain- none. Bowel and bladder function normal. Spring score 0 Period-no Annual due: now Concerns: none Triny Choi MD [address], [place], [address], [facility] 09/07/2022 09:37:51 12/31/2022 text/html Patient is a 27yo who presents for an annual exam. , not desiring BC. Recent TSH was wnl and Vit D was 26.8. last pap-12/2021 sexually active-y contraception-no ne seatbelts-y exercise-y depression-denie s domestic violence-denies tobacco-n concerns- Triny Choi MD [address], [place], [address], [facility] 01/14/2023 09:44:55 OBGyn Episode Ob Episode Information Episode Created Date Number of Fetuses Patient Bloodtype Patient rh Status Prepregnancy Weight lbs Domestic Partner Domestic Partner Phone Father Name Typing Secretary Status 04/10/20 22 1 CLOSED Fetus Data First Name Last Name Admitted to NICU Weight (g) Sex Living Outcome Pediatric Complications Fetus ID Race Codes Race Delivery Type 3713.55 7704 F Full Term [address]30 Vaginal Delivery Kurt Calculation Initial Kurt Date [...] Domestic Partner Domestic Partner Phone Father Name Typing Secretary Status 04/10/20 22 1 CLOSED Fetus Data First Name Last Name Admitted to NICU Weight (g) Sex Living Outcome Pediatric Complications Fetus ID Race Codes Race Delivery Type Sienna 3912.23 1 F true Full Term [address]103 Vaginal Delivery Problems Problem Notes Choi pt Problem Name Start Date End Date Resolution Snomed Code Not e Hypothyroidism 65956171 repea t 34-36w RhD negative 708316686 Rhogam received 05/16/22 Kurt Calculation Initial Kurt [...] Date Ultra Sound Latest Days Gestation 0 [email or web address] 04/11/2022 07/26/20 22 0 Pre- Flowsheet Flowsheet Date 04/10/2022 Torre Score Blood Edema Fundus Height Fundus Units Glucose Ketones Leukocytes Nitrite Labor Signs Protein Cervic Dilation Cervic Effacement Cervic Station neg none none trace Type Weight in lbs Pre/Post Dialysis Refused Weight 149.990258489438 BP Diastolic BP Location Tested BP Systolic BP Type 59 96 Fetus Heart Rate Present A 145 Fetus Movement A Yes Comments Minal is a 24o at 24.5 who presents as a transfer of care from [place]. She has hypothyroidism and has not had [...] Weight in lbs Pre/Post Dialysis Refused Weight 152.330219338510 BP Diastolic BP Location Tested BP Systolic [...] Weight in lbs Pre/Post Dialysis Refused Weight 155.56786906804 BP Diastolic BP Location Tested BP Systolic [...] Weight in lbs Pre/Post Dialysis Refused Weight 158.027130470976 BP Diastolic BP Location Tested BP Systolic [...] Weight in lbs Pre/Post Dialysis Refused Weight 155.65907285897 BP Diastolic BP Location Tested BP Systolic [...] Weight in lbs Pre/Post Dialysis Refused Weight 157.745166706318 BP Diastolic BP Location Tested BP Systolic [...] Weight in lbs Pre/Post Dialysis Refused Weight 157.996775421095 BP Diastolic BP Location Tested BP Systolic [...] Weight in lbs Pre/Post Dialysis Refused Weight 158.804070033077 BP Diastolic BP Location Tested BP Systolic [...] Weight in lbs Pre/Post Dialysis Refused Weight 159.468870199528 BP Diastolic BP Location Tested BP Systolic [...] Weight in lbs Pre/Post Dialysis Refused Weight 156.943008183546 BP Diastolic BP Location Tested BP Systolic [...] Weight in lbs Pre/Post Dialysis Refused Weight 138.451891206159 BP Diastolic BP Location Tested BP Systolic [...] Estim ated Date of Delivery false Thalassemia (Indonesian, Khmer, Mediterranean, Or Background): MCV < 80 false Neural Tube Defect (Meningomyelocele, Spina Bifi da, Or Anencephaly) false Congenital Heart Defect false Down Syndrome false Geovanni-Sachs (eg, Alevism, Cajun, Malay-Mobile) f alse Scotty Disease false Sickle Cell Disease Or Trait () false Hemophilia Or Other Blood Disorders false Muscular Dystrophy false Cystic Fibrosis false [place]'s Chorea false Intellectual Disability/Autism false If Yes, [...]
== END 2025-01-07 15:17 | disposition home or self-care (01) ==
PROVIDERS: PCP Nurse Practitioner; Visit Provider Nurse Practitioner
DX: R10.9 Unspecified abdominal pain (principal)
CPT/HCPCS: 74177; Q9967

== ENCOUNTER 2025-02-05 14:46 | Outpatient (CLI) | payer BC, SELFPAY ==
--- NOTE | ~2025-02-05 | US_ITS ---
EXAMINATION: US thyroid DATE: 02/05/2025 15:09 INDICATION: Abnormal thyroid levels TECHNIQUE: Multiple ultrasound images of the thyroid were obtained. COMPARISON: None. FINDINGS: The right thyroid lobe measures 4.4 x 1.5 x 1.4 cm. The left thyroid lobe measures 3.6 x 1.3 x 1.2 c m. There is an 8 mm solid hypoechoic nodule with smooth margins and without echogenic foci at the marshall perior left thyroid lobe. (TI-RADS 4, moderately suspicious , FNA if >=1.5 cm, annual followup is >=1 cm). There is decreased echogenicity with coarsened echotexture and increased vascular flow on color Doppler throughout the thyroid which can be seen in the setting of thyroiditis. IMPRESSION: 1. Diffuse decreased echogenicity, coarsened echotexture and increased vascular flow on color Doppler throughout the thyroid which can be seen with thyroiditis. 2. 8 mm TI RADS 4 left thyroid nodule which remains below size criteria for either biopsy or follow-u p. Reviewed, dictated and finalized at location A. IMPRESSION: 1. Diffuse decreased echogenicity, coarsened echotexture and increased vascular flow on color Doppler throughout the thyroid which can be seen with thyroiditi s. 2. 8 mm TI RADS 4 left thyroid nodule which remains below size criteria for eit her biopsy or follow-up.
== END 2025-02-05 14:47 | disposition home or self-care (01) ==
LOC: GOSHIMG 14:46
PROVIDERS: PCP Nurse Practitioner; Visit Provider Nurse Practitioner
DX: Z15.89 Genetic susceptibility to other disease (principal); Z15.09 Genetic susceptibility to other malignant neoplasm
CPT/HCPCS: 76536

== ENCOUNTER 2025-05-14 06:58 | Outpatient (CLI) | payer BC, SELFPAY ==
--- OUTSIDE RECORDS SUMMARY | 2025-05-14 07:01 | XMS_ITS | Clinical Summary ---
Author Organization [facility] Address [address] [place] [address] Phone Care Team Providers Care Cessation Systems Outreach Specialist Name Role Phone Cira Martinez NP Primary Care Provider [phone] Avelina Duenas MD Unavailable [phone] Ani Clemons MD PhD Unavailable [phone] Allergies Active Allergy Reactions Criticality Noted Date Comments Hydrocodone Rash Medium 12/02/2016 Medications Synthroid 75 mcg tablet Take 1 tablet (75 mcg total) by mouth daily Active FLUoxetine 10 mg capsule TAKE 3 CAPSULES (=30MG) DAILY 02/01/2025 Active valACYclovir (Valtrex) 1 gram tablet Take 1 tablet every 12 hours by oral route for 1 day. 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 Encounters Date Type Department Care Team Description 05/11/2025 Telephone [facility] [address] [place] [id number] Nathalie Razo RN 04/30/2025 Telephone [facility] [address] [place] [phone] Emily Finn 04/27/2025 Orders Only [facility] [address] [place] [phone] Ani Clemons MD PhD Monoallelic mutation of APC gene (Primary Dx) 04/23/2025 3:00 PM CDT Office Visit [facility] [address] [facility] [address] [place] [address] Ani Clemons MD PhD Monoallelic mutation of APC gene (Primary Dx) 04/02/2025 11:00 AM CDT Telemedicine [facility] [address] [facility] 2nd [place] [address] [place] [address] Monoallelic mutation of APC gene (Primary Dx) 03/02/2025 Patient Self-Triage [facility] [address] [place] [address] Mychart, Generic Provider from Last 3 Months Family History Medical History Relation Name Comments Breast cancer Father's Sister Prostate cancer Maternal Grandfather Ovarian cancer Maternal Grandmother Breast cancer Maternal Great-Grandmother hepatoblastoma Other Relation Name Status Comments Father Alive Father's Sister Alive Maternal Grandfather Alive Maternal Grandmother Maternal Great-Grandfather Alive Maternal Great-Grandmother Alive Mother Alive Other Alive Paternal Grandfather Paternal Grandmother Sister Alive Social History Tobacco Use Types Packs/Day Years Used Date Smoking Tobacco: Never Assessed Comments Unknown Sex and Gender Information Value Date Recorded Sex Assigned at Not on file Legal Sex Female 7:58 AM [employer] Gender Identity Not on file Sexual Orientation Not on file Obstetrics History Last Filed Vital Signs Vital Sign Reading Time Taken Comments Blood Pressure 114/78 04/23/2025 2:40 PM CDT Pulse 112 04/23/2025 2:40 PM CDT Temperature 36.8 C (98.3 F) 04/23/2025 2:40 PM CDT Respiratory Rate 16 04/23/2025 2:40 PM CDT Oxygen Saturation 96% 04/23/2025 2:40 PM CDT Inhaled Oxygen Concentration - - Weight 62.4 kg (137 lb 9.6 oz) 04/23/2025 2:37 P M CDT Height 152 cm (4' 11.84) 04/23/2025 2:37 PM CDT Body Mass Index 27.01 04/23/2025 2:37 PM CDT Plan of Treatment Health Maintenance Due Date Last Done Comments Depression Screening 1997 Hepatitis C Screening 1997 Varicella Vaccines (1 of 2 - 13+ 2-dose series) 2010 Regular Well Visit/Exam 18-64 2015 Cervical Cancer Screening 12/15/2022 12/15/2021 HPV Vaccines (1 - 3-dose SCD M series) 2024 Covid-19 Vaccine (3 - 2024-2 6 season) 2025 03/21/2021, 02/28/2021 Influenza Vaccine (#1) 2025 8, 05/16/2017, 06/11/2016, Additional history exists DTaP/Tdap/Td Vaccine (9 - Td or Tdap) 06/03/2032 06/03/2022, 07/10/2016, 03/14/2011, Additional history exists Hepatitis B Screening Completed 1997 , 1997, 1997 Pneumococcal vaccine <65 Completed 04/16/2000, 04/02 Insurance [employer] Care Teams Cessation Systems Outreach Specialist Relationship Specialty Start Date End Date Cira Martinez NP [address] [place] [address] PCP - General Nurse Practitioner 12/16/24 Avelina Duenas MD [address] DIV PED GENETICS [place] [address] Referring Physician Genetics 01/27/25 Ani Clemons MD PhD [address] [facility] [facility] [address] DIV IM [place] [address] Consulting Physician Medical Oncology 01/27/25
[2025-05-14 07:18] LABS: Hematocrit 42.9 % (35.0-49.0); Hemoglobin 13.8 g/dL (12.0-15.0); Immature Granulocyte Percent A 0.2 % (0.0-0.0); Lymphocytes Absolute Auto 2.00 K/mm3 (1.10-4.50); Mean Corpuscular HGB Conc 32.2 g/dL (32-36); Mean Corpuscular Hemoglobin 29.5 pg (27.0-31.0); Mean Corpuscular Volume 91.7 fL (78.0-102.0); Nucleated Red Blood Cells Absolute Auto 0.00 K/mm3 (0.00-0.00); Nucleated Red Blood Cells Perc 0.0 % (0-0.0); Platelet Count Result 379 K/mm3 (150-420); Red Blood Count 4.68 M/mm3 (4.20-5.40); White Blood Count 5.5 K/mm3 (4.8-10.8)
[2025-05-14 07:53] LABS: Alanine Aminotransferase 11 U/L (6-35); Albumin Level 5.0 g/dL (3.5-5.1); Alkaline Phosphatase 82 U/L (38-126); Anion Gap 9 mmol/L (4-12); Aspartate Amino Transferase 19 U/L (14-36); Bilirubin,Total 0.6 mg/dL (0.2-1.3); Blood Urea Nitrogen 17 mg/dL (7-17); Calcium 9.7 mg/dL (8.4-10.2); Carbon Dioxide 30 mmol/L (22-30); Chloride 105 mmol/L (98-107); Cholesterol 214 mg/dL (0-200); Estimated Glomerular Filt Rate > 60; Glucose 92 mg/dL (65-110); HDL Direct 82 mg/dL; Osmolality Calculated 299 mOsm/kg (285-295); Potassium 4.5 mmol/L (3.4-5.0); Sodium 144 mmol/L (137-145); Total Protein 7.4 g/dL (6.3-8.2); Triglycerides 83 mg/dL (<150)
[2025-05-14 08:08] LABS: Free T4 Free Thyroxine 0.84 ng/dL (0.78-2.19)
[2025-05-14 08:09] LABS: Free T3 3.06 pg/mL (2.18-3.98)
[2025-05-14 08:22] LABS: Thyroid Stimulating Hormone 5.890 uIU/mL (0.465-4.680)
== END 2025-05-14 06:59 | disposition home or self-care (01) ==
LOC: CHSLAB 06:59
PROVIDERS: PCP Internal Medicine; Visit Provider Nurse Practitioner
DX: Z13.220 Encounter for screening for lipoid disorders (principal); E03.9 Hypothyroidism, unspecified; E06.9 Thyroiditis, unspecified; Z13.29 Encounter for screening for other suspected endocrine disorder; Z83.49 Family history of other endocrine, nutritional and metabolic diseases
CPT/HCPCS: 36415; 80053; 80061; 84439; 84443; 84481; 85025; 86376